=== PATIENT | male | born 1990 | race Caucasian/White ===

== ENCOUNTER 2020-07-10 16:35 | Emergency (ER) | payer SELFPAY ==
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
[2020-07-10 16:35] VITALS: BP 143/86; PULSE 92; RESP 14; TEMP 37.2; O2SAT 96
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
--- NOTE | 2020-07-10 18:01 | PC.NURSE ---
Anabela at [facility] contacted at 1800 per ERP verbal orders. Awaiting call back from ENT production operator.
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
--- NOTE | 2020-07-10 18:17 | PC.NURSE ---
1816 [employer] AT [facility] CONTACTED FOR HAND SURGEON, DR. CHENG, CONSULTATION. AWAITING CALL BACK.
[2020-07-10] MEDS: WATER, STERILE FOR INJECTION 10 ML VIAL XX (18:24)
[2020-07-10] MEDS: TETANUS,DIPHTHERIA,AC PERTUSSIS ADULT 0.5 ML (ADACEL) IM (18:24)
[2020-07-10] MEDS: ceFAZolin SODIUM 1 GM VIAL IM (18:25)
[2020-07-10] MEDS: NEOMYCIN/POLYMYXIN/BACITRACIN OINTMENT PACKET 2 PACKET (18:28)
--- NOTE | 2020-07-10 18:43 | PC.NURSE ---
516 DR. PETE, [facility], CONTACTED [facility] FOR CONSULT. SEE ERP DOCUMENTATION.
[2020-07-10 18:54] VITALS: PULSE 90; RESP 14; O2SAT 99
--- NOTE | 2020-07-13 22:44 | PC.NURSE ---
07/10/20 1850 ALICE WRAP APPLIED TO RIGHT HAND PER ERP VERBAL ORDERS
== END 2020-07-10 18:55 | disposition home or self-care (01) ==
PROVIDERS: Emergency Provider Family Medicine; PCP Family Medicine
DX: S62.65 Nondisplaced fracture of middle phalanx of finger (principal); S63.641A Sprain of metacarpophalangeal joint of right thumb, initial encounter; S02.2XXA Fracture of nasal bones, initial encounter for closed fracture; Y04.0XXA Assault by unarmed brawl or fight, initial encounter
CPT/HCPCS: 29125; 70486; 73110; 73130; 90471; 90715; 96372; 99283; 99284; A9270; J0690

== ENCOUNTER 2022-04-08 12:56 | Emergency (ER) | payer OTHER, SELFPAY ==
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
--- NOTE | 2022-04-08 12:59 | PC.NURSE ---
per registration, patient was going to grab his drink and phone and would be right back in.
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
[2022-04-08 13:25] VITALS: BP 133/88; PULSE 79; RESP 16; TEMP 36.1; O2SAT 98
[2022-04-08] MEDS: KETOROLAC (*BKC) 60 MG/2 ML VIAL IM (13:58)
[2022-04-08 14:25] VITALS: BP 116/82; PULSE 72; RESP 16; TEMP 36.4; O2SAT 100
== END 2022-04-08 14:26 | disposition home or self-care (01) ==
PROVIDERS: Emergency Provider Emergency Medicine; PCP Family Medicine
DX: S29.012A Strain of muscle and tendon of back wall of thorax, initial encounter (principal); S39.012A Strain of muscle, fascia and tendon of lower back, initial encounter; V89.2XXA Person injured in unspecified motor-vehicle accident, traffic, initial encounter
CPT/HCPCS: 72128; 72131; 96372; 99284; J1885

== ENCOUNTER 2023-02-28 23:05 | Emergency (ER) | payer SELFPAY ==
--- NOTE | ~2023-02-28 | XR_ITS ---
Right Hand Technique: PA, oblique, and lateral views were obtained. Clinical History: Pain Findings: No acute fracture or dislocation is seen. Osseous alignment is anatomic. There is mild to m oderate degenerative change at the fifth PIP joint. Soft tissues are unremarkable. Impression: No acute fracture or dislocation. Moderate degenerative change at the fifth PIP joint. Reviewed, dictated and finalized at location . Impression: No acute fracture or dislocation. Moderate degenerative change at the fifth PIP joint.
[2023-02-28 23:12] VITALS: BP 129/80; PULSE 90; RESP 18; TEMP 36.6; O2SAT 96
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
[2023-03-01] MEDS: KETOROLAC 30 MG/ML VIAL (*BKC) IM (00:19)
[2023-03-01 01:00] VITALS: BP 130/85; PULSE 79; RESP 17; TEMP 36.5; O2SAT 95
== END 2023-03-01 01:04 | disposition home or self-care (01) ==
PROVIDERS: Emergency Provider Internal Medicine Critical Care Medicine; PCP Family Medicine
DX: S61.210A Laceration without foreign body of right index finger without damage to nail, initial encounter (principal); M25.511 Pain in right shoulder; M79.641 Pain in right hand; S09.90XA Unspecified injury of head, initial encounter; F17.210 Nicotine dependence, cigarettes, uncomplicated; Y04.2XXA Assault by strike against or bumped into by another person, initial encounter
CPT/HCPCS: 12001; 73130; 96372; 99283; J1885

== ENCOUNTER 2024-04-11 03:32 | Emergency (ER) | payer SELFPAY ==
[2024-04-11 03:34] VITALS: BP 124/82; PULSE 77; RESP 18; TEMP 36.1; O2SAT 96
[2024-04-11] MEDS: AMOXICILLIN 500 MG CAPSULE PO (04:04)
[2024-04-11] MEDS: KETOROLAC (*BKC) 60 MG/2 ML VIAL IM (04:04)
--- NOTE | 2024-04-11 04:08 | ED.DENTAL ---
HPI - Dental/Oral General Chief complaint: Dental/Oral Stated complaint: dental pain Time Seen by Provider: 04/11/24 03:49 Source: patient Mode of arrival: ambulatory Limitations: no limitations History of Present Illness HPI Narrative: this is a 33-year-old male that is having dental pain with right facial pain no fever chills no shortness of breath Complaint: tooth pain Teeth map: 1. dental pain was surrounding gum inflammation 2. dental pain with surrounding gum inflammation Onset (ago): day(s) Relieving factors: nothing Exacerbating factors: chewing Context: history of dental caries and poor dental care Associated symptoms: gum swelling Related Data Home Medications Medication Instructions Recorded Confirmed anastrozole 25 mg PO DAILY 02/28/23 04/11/24 testosterone cypionate 200 mg/mL 200 mg IM ONCE 02/28/23 04/11/24 intramuscular kit Allergies Allergy/AdvReac Type Severity Reaction Status Date / Time No Known Allergies Allergy Verified 04/11/24 03:37 Review of Systems Review of Systems: All systems reviewed & are unremarkable except as noted in HPI and below PMFSH Past Medical History Medical History Broken nose Otitis media Wound, open, ear, Eustachian tube Surgical History Surgical History History of appendectomy Social History Social History Smoking packs per day: 2 Smoking cigarettes per day: 40.0 Smoking status: Current every day smoker Tobacco type: cigarettes Substance use: never Exam Const: General: healthy appearing Nutritional Appearance: well nourished Orientation/consciousness: patient oriented x3 Limitations: no limitations HENMT: Other: dental pain with surrounding gum inflammation with right submandibular gland swelling Neck: Neck: normal visual inspection Chest: Chest palpation & inspection: normal inspection of the chest Resp: Effort & Inspection: normal respiratory effort Auscultation: clear to auscultation bilaterally Course Course Emergency Course: patient received a dose of amoxicillin and a dose of 60mg IM Toradol with. Vital Signs Vital signs: Vital Signs Temperature 36.1 C L 04/11/24 03:34 Pulse Rate 77 04/11/24 03:34 Respiratory Rate 18 04/11/24 03:34 Blood Pressure 124/82 04/11/24 03:34 Pulse Oximetry 96 04/11/24 03:34 Oxygen Delivery Room Air 04/11/24 03:34 Temperature 36.1 C L 04/11/24 03:34 Pulse Rate 77 04/11/24 03:34 Respiratory Rate 18 04/11/24 03:34 Blood Pressure 124/82 04/11/24 03:34 Pulse Oximetry 96 04/11/24 03:34 Oxygen Delivery Room Air 04/11/24 03:34 Critical Care Time Critical Care Time Critical Care Time: No Discharge Plan Discharge Clinical Impression: Dental abscess, Toothache, Dental caries Patient Disposition: Home, Self-Care Condition: Stable Instructions: Antibiotic Form, Dental Abscess (ED), Toothache (ED) Additional Instructions: Advised to take medicine as prescribed and follow-up with Primary/dentist for further evaluation treatment Prescriptions: New amoxicillin 500 mg tablet 500 mg PO TID Qty: 30 0RF tramadol 50 mg tablet 50 mg PO Q6H PRN (Reason: pain) Qty: 20 0RF No Action testosterone cypionate 200 mg/mL Kit 200 mg IM ONCE Rx Instructions: as a single dose anastrozole 25 mg PO DAILY Follow-up/Referrals: Germaine,MD Parker [Primary Care Provider] - Stand Alone Forms: Work/School Release IP Time of Disposition: 04:13
== END 2024-04-11 04:18 | disposition home or self-care (01) ==
PROVIDERS: Emergency Provider Emergency Medicine; PCP Family Medicine
DX: K04.7 Periapical abscess without sinus (principal); K02.9 Dental caries, unspecified; F17.210 Nicotine dependence, cigarettes, uncomplicated
CPT/HCPCS: 96372; 99283; A9270; J1885

== ENCOUNTER 2024-04-15 18:01 | Emergency (ER) | payer SELFPAY ==
[2024-04-15 18:05] VITALS: BP 142/86; PULSE 77; RESP 20; TEMP 36.7; O2SAT 98
--- NOTE | 2024-04-15 18:18 | ED.DENTAL ---
HPI - Dental/Oral General Chief complaint: Dental/Oral Stated complaint: tooth pain/facial swelling Time Seen by Provider: 04/15/24 18:11 Source: patient and family () Mode of arrival: ambulatory Limitations: no limitations History of Present Illness HPI Narrative: 33 year old male presents to the Emergency Department complaining of dental pain. Onset 5 days ago. Was seen here and has followed with 2 dentists. He was given dental block, but his has worn off and he is in pain. He is taking Amoxicillin and Clindamycin and Tylenol #3. MD Complaint: tooth pain Onset (ago): day(s) (5) Duration: constant Severity: severe Relieving factors: other (dental block) Exacerbating factors: nothing Context: history of dental caries Treatment prior to arrival: oral analgesic and other (antibiotics, dental block) Related Data Home Medications Medication Instructions Recorded Confirmed anastrozole 25 mg PO DAILY 02/28/23 04/11/24 testosterone cypionate 200 mg/mL 200 mg IM ONCE 02/28/23 04/11/24 intramuscular kit Allergies Allergy/AdvReac Type Severity Reaction Status Date / Time No Known Allergies Allergy Verified 04/11/24 03:37 Review of Systems Review of Systems: All systems reviewed & are unremarkable except as noted in HPI and below Constitutional: Constitutional: Reports as per HPI Eyes: Eyes: Reports as per HPI ENT: Reports system reviewed and no additional complaints, except as documented Cardiovascular: Cardiovascular: Reports as per HPI and Denies chest pain Respiratory: Respiratory: Reports as per HPI and Denies dyspnea Gastrointestinal: Gastrointestinal: Reports as per HPI and Denies abdominal pain Musculoskeletal: Musculoskeletal: Reports no additional musculoskeletal complaints Integumentary/Breasts: Skin/Breast: Reports system reviewed and no additional complaints, except as docu Neurologic: Reports system reviewed and no additional complaints, except as documented PMF Past Medical History Medical History Broken nose Otitis media Wound, open, ear, Eustachian tube Surgical History Surgical History History of appendectomy Social History Social History Smoking packs per day: 2 Smoking cigarettes per day: 40.0 Smoking status: Current every day smoker Tobacco type: cigarettes Substance use: never Exam Const: General: healthy appearing Nutritional Appearance: well nourished Orientation/consciousness: patient oriented x3 Limitations: no limitations Other: moderate distress HENMT: Head: normal to inspection Ears: external ears normal Face/Nose/Sinus: Normal external nose present Face and sinus: normal facial exam Mouth: Yes Normal oral and palatal mucosa present Throat: posterior oropharynx normal Other: scattered dental decay. Eyes: Conjunctivae: conjunctivae normal Pupils: Equal, round and reactive pupils present EOM: EOMs intact bilaterally Direct Ophthalmoscopy: no photophobia Neck: Neck: normal visual inspection Chest: Chest palpation & inspection: normal inspection of the chest Resp: Effort & Inspection: normal respiratory effort Cardio: Rate: regular rate Rhythm: regular rhythm Heart sounds: no murmurs GI: Inspection: non-distended GI Palp: Yes Soft to palpation, No Tenderness to palpation present (GI) and No Guarding due to palpation present (GI) Skin: General skin exam: normal color Rashes: no rashes Wounds: no wounds Neuro: General: patient oriented x3, moves all extremities, no meningeal signs, no focal motor deficits and CN's II-XI intact bilaterally Cranial nerves: Yes Nystagmus not present Speech: normal speech Gait exam (Neuro): Normal gait present Extrem: General: normal to inspection Psych: Mental Status: mental status grossly normal Course Course [facility]
[2024-04-15] MEDS: HYDROmorphone HCL INJ (*CRX) 2 MG/ML VIAL IM (18:28)
[2024-04-15] MEDS: cefTRIAXone 1 GM, LIDOCAINE HCL 1% LOCAL INJ 2.1 ML IM (18:29)
== END 2024-04-15 18:43 | disposition home or self-care (01) ==
LOC: CHSED 18:45
PROVIDERS: Emergency Provider Emergency Medicine; PCP Family Medicine
DX: K08.89 Other specified disorders of teeth and supporting structures (principal); K02.9 Dental caries, unspecified; F17.210 Nicotine dependence, cigarettes, uncomplicated; Z79.811 Long term (current) use of aromatase inhibitors
CPT/HCPCS: 96372; 99284; J0696; J1170

== ENCOUNTER 2024-08-18 16:26 | Outpatient (CLI) | payer MEDICAID, SELFPAY ==
--- NOTE | ~2024-08-18 | XR_ITS ---
XR foot LT min 3V Ordering provider: Parker Herron, History: . LEFT FOOT PAIN . Comparison: None. FINDINGS: BONES: No acute fracture or dislocation. JOINT SPACES: Normal. No tarsal coalition. SOFT TISSUES: Normal. IMPRESSION: No acute osseous abnormality left foot. Reviewed, dictated and finalized at location A.
== END 2024-08-18 16:27 | disposition home or self-care (01) ==
LOC: CHSIMG 16:31
PROVIDERS: PCP Family Medicine; Visit Provider Physician Assistant
DX: M79.672 Pain in left foot (principal)
CPT/HCPCS: 73630

== ENCOUNTER 2024-11-26 20:28 | Emergency (ER) | payer OTHER, SELFPAY ==
--- NOTE | ~2024-11-26 | CT_ITS ---
EXAMINATION: CT diagnostic chest wo con DATE: 11/26/2024 21:05 INDICATION: Left-sided chest wall ulcer. TECHNIQUE: Computed tomography (CT) of the chest was performed without intravenous contrast. The dose -length product was 171.30 mGy-cm. Automated exposure control and iterative reconstruction technique were employed. COMPARISON: None FINDINGS: There is a soft tissue defect in the left anterior chest wall extending through the subcuta neous fat into the pectoralis muscle. There is mottled soft tissue and gas within the tract. No thora cic lymphadenopathy. Heart size normal. Upper abdomen is unremarkable. No evidence for underlying ost eomyelitis. There is focal left upper lobe consolidation anteriorly, suspicious for pneumonia. IMPRESSION: 1. Soft tissue defect left anterior chest wall with extension of this mottled soft tissue containing gas extending through the fat into the pectoralis muscle. Differential diagnosis includes posttraumat ic change and infection. 2: Focal left upper lobe consolidation, suspicious for pneumonia. Reviewed, dictated and finalized at location A. [employer] IMPRESSION: 1. Soft tissue defect left anterior chest wall with extension of this mottled s oft tissue containing gas extending through the fat into the pectoralis muscle. Differential diagnosis includes posttraumatic change and infection. 2: Focal left upper lobe consolidation, suspicious for pneumonia.
[2024-11-26 20:29] VITALS: BP 135/78; PULSE 83; RESP 20; TEMP 36.3; O2SAT 95
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
[2024-11-26 20:32] VITALS: PULSE 81; RESP 18; O2SAT 96
[2024-11-26 20:45] VITALS: PULSE 82; RESP 18
[2024-11-26 20:46] VITALS: BP 123/81; PULSE 84; RESP 15
[2024-11-26 21:48] VITALS: O2SAT 97
== END 2024-11-26 22:05 | disposition home or self-care (01) ==
PROVIDERS: Emergency Provider Internal Medicine Critical Care Medicine; PCP Physician Assistant
DX: L98.492 Non-pressure chronic ulcer of skin of other sites with fat layer exposed (principal); F17.210 Nicotine dependence, cigarettes, uncomplicated; Z89.211 Acquired absence of right upper limb below elbow
CPT/HCPCS: 71250; 99284

== ENCOUNTER 2024-12-21 22:54 | Emergency (ER) | payer OTHER, SELFPAY ==
[2024-12-21 22:54] VITALS: BP 114/58; PULSE 77; RESP 18; TEMP 36.4; O2SAT 99
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
--- OUTSIDE RECORDS SUMMARY | 2024-12-21 22:56 | XMS_ITS | Encounter Summary ---
Author Organization [facility] Address [address] [place] [id number] Care Team Providers Care Machined Parts Quality Inspector Name Role Phone Socrates Ramírez Primary Care Provider [phone] Encounter Details Date Type Department Care Team (Late st Contact Info) Description 04/19/2019 Abstract [facility] CONVERSION [address] [place], [place] [id number] , Generic Conversion, Social History Tobacco Use Types Packs/Day Years Used Date Smoking Tobacco: Never Assessed Sex and Gender Information Value Date Recorded Sex Assigned at Male 11/26/2024 1:28 PM CREPE MAKER Legal Sex Male 5:52 PM CREPE MAKER Gender Identity Not on file Sexual Orientation Not on file documented as of this encounter Plan of Treatment Upcoming Encounters Date Type Department Care Team (Late st Contact Info) Description 12/22/2024 8:30 AM CREPE MAKER Appointment [facility] [address] [place] [address] Shea Stein, EMPLOYEE SERVICES MANAGER [address] [place] [address] 12/25/2024 9:15 AM CREPE MAKER Appointment [facility] [address] [place] [address] Shea Stein, EMPLOYEE SERVICES MANAGER [address] [place] [address] documented as of this encounter Visit Diagnoses Not on filedocumented in this encounter Care Teams Machined Parts Quality Inspector Relationship Specialty Start Date End Date Socrates Ramírez PA [address] [place] [phone] PCP - General PHYSICIAN CONFERENCE ASSISTANT 11/26/24 documented as of this encounter
--- OUTSIDE RECORDS SUMMARY | 2024-12-21 22:56 | XMS_ITS | Clinical Summary ---
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
--- NOTE | 2024-12-21 22:59 | ECG_ITS ---
Test Date: 2024-12-21 23:11:34 Measurements Intervals Smilax Rate: 71 P: 55 NE: 144 QRS: -22 QRSD: 125 T: 25 QT: 373 QTc: 407 Interpretive Statements SINUS RHYTHM POSSIBLE RIGHT VENTRICULAR CONDUCTION DELAY DELAYED PRECORDIAL R/S TRANSITION NONSPECIFIC T-WAVE ABNORMALITY- INFERIOR LEADS BORDERLINE ECG No previous ECG available for comparison Electronically Signed On 12-22-2024 06:30:11 DOLLY PUSHER by Luis Manuel Mcintyre D.O.
--- NOTE | 2024-12-21 23:00 | ED_ITS ---
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 He started having some dysequilibrium earlier today along with fatigue and weakness. As he recently had a DVT he was concerned and came in. There is no diarrhea, vomiting, dyspnea, fevers or chest pain. He does have 2 daughters that are sick. Related Data Home Medications ?Medication ?Instructions ?Recorded ?Confirmed ?Last Taken ?Type apixaban 5 mg tablet (Eliquis) 5 mg PO Q12H 12/21/24 12/21/24 Unknown History cyclobenzaprine 10 mg tablet 10 mg PO Q8H PRN MUSCLE RELAXOR 12/21/24 12/21/24 Unknown History duloxetine 60 mg capsule,delayed 60 mg PO DAILY 12/21/24 12/21/24 Unknown History release famotidine 20 mg tablet 20 mg PO DAILY GERD 12/21/24 12/21/24 Unknown History morphine 30 mg tablet,extended 30 mg PO Q8H PAIN 12/21/24 12/21/24 Unknown History release oxycodone 10 mg tablet 10 mg PO Q6H PRN pain 12/21/24 12/21/24 Unknown History pregabalin 200 mg capsule 200 mg PO Q8H PAIN 12/21/24 12/21/24 Unknown History Allergies Allergy/AdvReac Type Severity Reaction Status Date / Time No Known Allergies Allergy Verified 12/21/24 23:06 Review of Systems 2 Review of Systems: All systems reviewed & are unremarkable except as noted in HPI and below PMFSH Past Medical History Medical History Broken nose Otitis media Wound, open, ear, Eustachian tube Surgical History Surgical History History of appendectomy Social History Social History Smoking packs per day: 2 Smoking cigarettes per day: 40.0 Smoking status: Current every day smoker Tobacco type: cigarettes Substance use: never Exam 2 Const: General: cooperative, healthy appearing, comfortable, no acute distress, well developed, alert, awake and Physically active O rientation/consciousness: oriented to person, oriented to place and oriented to time HENMT: Head: normal to inspection, normocephalic and atraumatic Ears: h earing grossly normal bilaterally and external ears normal Face/Nose/Sinus: N ormal external nose present Eyes: General: appearance normal, both eyes and all related structures P eriorbital: periorbital findings normal Sclera: sclerae normal Pupils: E qual, round and reactive pupils present Neck: Neck: normal visual inspection Chest: Chest palpation & inspection: normal inspection of the chest Resp: Effort & Inspection: normal respiratory effort, able to speak in complete sentences and no respiratory distress Auscultation: clear to auscultation bilaterally Cardio: Jugular venous distension: no JVD Rate: regular rate Rhythm: r egular rhythm GI: Inspection: normal to inspection GI Palp: Yes Soft to palpation A uscultation: normal bowel sounds Skin: General skin exam: normal color and no rashes or lesions noted Other: wound vac on chest Surgical scar on right leg Neuro: General: oriented to person, oriented to place and oriented to time Cranial nerves: Yes Equal, round and reactive pupils present Other: multiple beats of left sided nystagmus to the left. Normal finger to nose Extrem: Other: right hand amputation Course Course Emergency Course: EKG showed NSR with a rate of 71, possible LAD but no ST elevation/depression or ectopy Labs showed leukocytosis (likely from the DVT or healing wounds as there is no apparent site of infection), mild hyperkalemia, and negative viral testing Vital Signs Vital signs: Vital Signs Temperature 97.6 F 12/21/24 22:54 Pulse Rate 77 12/21/24 22:54 Respiratory Rate 18 12/21/24 22:54 Blood Pressure 114/58 L 12/21/24 22:54 Pulse Oximetry 99 12/21/24 22:54 Oxygen Delivery Room Air 12/21/24 22:54 Temperature 97.6 F 12/21/24 22:54 Pulse Rate 79 12/22/24 00:13 Respiratory Rate 18 12/22/24 00:13 Blood Pressure 122/72 12/22/24 00:13 Pulse Oximetry 96 12/22/24 00:13 Oxygen Delivery Room Air 12/22/24 00:13 Medical Decision Making Vital Signs Vital Signs: Vital Signs Temperature 97.6 F 12/21/24 22:54 Pulse Rate 77 12/21/24 22:54 Respiratory Rate 18 12/21/24 22:54 Blood Pressure 114/58 L 12/21/24 22:54 Pulse Oximetry 99 12/21/24 22:54 Oxygen Delivery Room Air 12/21/24 22:54 Temperature 97.6 F 12/21/24 22:54 Pulse Rate 79 12/22/24 00:13 Respiratory Rate 18 12/22/24 00:13 Blood Pressure 122/72 12/22/24 00:13 Pulse Oximetry 96 12/22/24 00:13 Oxygen Delivery Room Air 12/22/24 00:13 Lab Data 12/21/24 22:59 12/21/24 22:59 Labs: Lab Results 12/21/24 12/21/24 Range/Units 22:59 23:00 WBC 16.1 H (4.8-10.8) K/mm3 RBC 5.26 (4.70-6.10) M/mm3 Hgb 14.6 (14.0-18.0) g/dL Hct 44.4 (40.0-54.0) % MCV 84.4 (78.0-102.0) fL MCH 27.8 (27.0-31.0) pg MCHC 32.9 (32-36) g/dL RDW 13.0 (11.6-14.4) % Plt Count 294 (150-420) K/mm3 MPV 10.8 (8.7-11.0) fl Immature Gran % (Auto) 0.4 H (0.0-0.0) % Neut % (Auto) 60.6 (50.0-70.0) % Lymph % (Auto) 28.5 (18.0-42.0) % [place] % (Auto) 5.7 (2.0-11.0) % Eos % (Auto) 4.2 (1.0-6.0) % Baso % (Auto) 0.6 (0.0-1.0) % Lymph # (Auto) 4.60 H (1.10-4.50) K/mm3 [place] # (Auto) 0.92 H (0.10-0.90) K/mm3 Eos # (Auto) 0.68 H (0.02-0.50) K/mm3 Baso # (Auto) 0.09 (0.00-0.10) K/mm3 Abs Immat Gran (auto) 0.06 H (0.00-0.00) K/mm3 Absolute Neuts (auto) 9.79 H (1.70-7.20) K/mm3 Absolute Nucleated RBC 0.00 (0.00-0.00) K/mm3 Nucleated RBC % 0.0 (0-0.0) % Sodium 135 L (136-145) mmol/L Potassium 5.5 H (3.5-5.1) mmol/L Chloride 100 (98-108) mmol/L Carbon Dioxide 29 (21-32) mmol/L Anion Gap 6 (4-12) mmol/L BUN 5 L (7-18) mg/dL Creatinine 0.89 (0.70-1.30) mg/dL Estim Creat Clear Calc 104 ml/min Estimated GFR > 60 (59 - ) Glucose 120 H (70-99) mg/dL Calculated Osmolality 278 L (285-295) mOsm/kg Calcium 8.5 (8.5-10.1) mg/dL Magnesium 1.8 (1.8-2.4) mg/dL Total Bilirubin 0.6 (0.00-1.00) mg/dL AST 62 H (15-37) U/L ALT 26 (16-63) U/L Alkaline Phosphatase 91 (46-116) U/L Total Creatine Kinase 196 (39-308) U/L Troponin I < 4.0 (0.00-60.4) ng/L NT-Pro-B Natriuret Pep 36 (0-125) pg/mL Total Protein 7.0 (6.4-8.2) g/dL Albumin 3.6 (3.4-5.0) g/dL TSH 2.37 (0.36-3.74) uIU/mL Influenza A (RT-PCR) Negative (Negative) Influenza B (RT-PCR) Negative (Negative) RSV (RT-PCR) Negative (Negative) SARS-CoV-2 RNA (RT-PCR) Negative (Negative) Discharge Plan Discharge Clinical Impression: Vertigo Patient Disposition: Home, Self-Care Condition: Stable Instructions: Benign Paroxysmal Positional Vertigo (ED) Patient Language: Vietnamese Prescriptions: No Action cyclobenzaprine 10 mg tablet 10 mg PO Q8H PRN (Reason: MUSCLE RELAXOR) morphine 30 mg tablet extended release 30 mg PO Q8H famotidine 20 mg tablet 20 mg PO DAILY duloxetine 60 mg capsule,delayed release(DR/EC) 60 mg PO DAILY pregabalin 200 mg capsule 200 mg PO Q8H oxycodone 10 mg tablet 10 mg PO Q6H PRN (Reason: pain) Eliquis 5 mg tablet 5 mg PO Q12H Follow-up/Referrals: Desiree,YENNY Crowell [Primary Care Provider] -
[2024-12-21 23:01] VITALS: BP 115/71; PULSE 69; RESP 13; O2SAT 94
--- NOTE | 2024-12-21 23:05 | PC.NURSE ---
DR RIVER AT THE BEDSIDE
[2024-12-21 23:16] LABS: Basophils Absolute Auto 0.09 K/mm3 (0.00-0.10); Basophils Percent Auto 0.6 % (0.0-1.0); Eosinophils Absolute Auto 0.68 K/mm3 (0.02-0.50); Eosinophils Percent Auto 4.2 % (1.0-6.0); Hematocrit 44.4 % (40.0-54.0); Hemoglobin 14.6 g/dL (14.0-18.0); Immature Granulocyte Absolute 0.06 K/mm3 (0.00-0.00); Immature Granulocyte Percent A 0.4 % (0.0-0.0); Lymphocytes Percent Auto 28.5 % (18.0-42.0); Mean Corpuscular HGB Conc 32.9 g/dL (32-36); Mean Corpuscular Hemoglobin 27.8 pg (27.0-31.0); Mean Corpuscular Volume 84.4 fL (78.0-102.0); Mean Platelet Volume 10.8 fl (8.7-11.0); Monocytes Absolute Auto 0.92 K/mm3 (0.10-0.90); Monocytes Percent Auto 5.7 % (2.0-11.0); Neutrophils Absolute Auto 9.79 K/mm3 (1.70-7.20); Neutrophils Percent Auto 60.6 % (50.0-70.0); Platelet Count Result 294 K/mm3 (150-420); Red Blood Count 5.26 M/mm3 (4.70-6.10); White Blood Count 16.1 K/mm3 (4.8-10.8)
[2024-12-21 23:41] LABS: Alanine Aminotransferase 26 U/L (16-63); Albumin Level 3.6 g/dL (3.4-5.0); Alkaline Phosphatase 91 U/L (46-116); Anion Gap 6 mmol/L (4-12); Aspartate Amino Transferase 62 U/L (15-37); Bilirubin,Total 0.6 mg/dL (0.00-1.00); Blood Urea Nitrogen 5 mg/dL (7-18); Calcium 8.5 mg/dL (8.5-10.1); Carbon Dioxide 29 mmol/L (21-32); Chloride 100 mmol/L (98-108); Creatine Kinase 196 U/L (39-308); Estimated CRCL calculation 104 ml/min; Estimated Glomerular Filt Rate > 60; Glucose 120 mg/dL (70-99); Magnesium 1.8 mg/dL (1.8-2.4); NT Pro B Type Natriuretic Pept 36 pg/mL (0-125); Osmolality Calculated 278 mOsm/kg (285-295); Potassium 5.5 mmol/L (3.5-5.1); Sodium 135 mmol/L (136-145); Thyroid Stimulating Hormone 2.37 uIU/mL (0.36-3.74)
[2024-12-21 23:50] LABS: Troponin I < 4.0 ng/L (0.00-60.4)
[2024-12-21 23:55] LABS: SARS-CoV-2 RNA PCR Negative (Negative)
[2024-12-21 23:56] LABS: Influenza A QL RT-PCR Negative (Negative); Influenza B QL RT-PCR Negative (Negative); RSV RNA, RT-PCR Negative (Negative)
--- NOTE | 2024-12-22 00:12 | PC.NURSE ---
PATIENT AMBULATED TO THE BATHROOM AND BACK TO ROOM WITHOUT ANY DIFFICULTY.
[2024-12-22 00:13] VITALS: BP 122/72; PULSE 79; RESP 18; O2SAT 96
--- NOTE | 2024-12-22 00:13 | PC.NURSE ---
DR RIVER AT THE BEDSIDE
[2024-12-22] MEDS: MORPHINE SULFATE (*CRX) 4 MG/ML INJ IV PUSH (00:19)
--- OUTSIDE RECORDS SUMMARY | 2024-12-22 00:19 | XMS_ITS | Clinical Summary ---
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 CONTACT LAB WITHIN ONE WEEK. (A) NEGATIVE 11/17/2024 1:54 PM WATERMELON HARVESTING SUPERVISOR [facility] COCAINE METABOLITES (U) NEGATIVE NEGATIVE 11/17/2024 1:54 PM WATERMELON HARVESTING SUPERVISOR [facility] AMPHETAMINE (U) NEGATIVE NEGATIVE 1:54 PM WATERMELON HARVESTING SUPERVISOR [facility] CANNABINOIDS SCREEN (U) POSITIVE SCREEN RESULT, IF CONFIRMATION DESIRED PLEASE CONTACT LAB WITHIN ONE WEEK. (A) NEGATIVE 11/17/2024 1:54 PM WATERMELON HARVESTING SUPERVISOR [facility] OPIATE SCREEN (U) NEGATIVE NEGATIVE 025 1:54 PM WATERMELON HARVESTING SUPERVISOR [facility] BARBITURATES SCREEN (U) NEGATIVE NEGATIVE 11/17/2024 1:54 PM WATERMELON HARVESTING SUPERVISOR [facility] URINE TOX COMMENT Unconfirmed screening results are to be used only for medical purposes. 11/17/2024 1:18 PM WATERMELON HARVESTING SUPERVISOR [facility] CUTOFF CONCENTRATION (U) Cut-off Concentration for a positive result 11/17/2024 1:18 PM WATERMELON HARVESTING SUPERVISOR [facility] Comment: Phencyclidine 25 ng/mL Benzodiazepines 200 ng/mL Cocaine 300 ng/mL Amphetamine 1000 ng/mL Cannabinoids 50 ng/mL Opiates 300 ng/mL Barbiturates 200 ng/mL URINE SPECIMEN / Unknown 11/17/2024 1:20 PM WATERMELON HARVESTING SUPERVISOR us Aurora Hess DO URINE ORDERABLES Final Resu lt [facility] [address] [place] [address], [id number] * XR CHEST PORTABLE (11/17/2024 5:46 AM WATERMELON HARVESTING SUPERVISOR) Only the most recent of3 resultswithin the time period is included. Anatomical Region Laterality Modality Chest Radiographic Tresa ging 11/17/2024 5:47 AM WATERMELON HARVESTING SUPERVISOR Impressions 11/17/2024 5:50 AM WATERMELON HARVESTING SUPERVISOR IMPRESSION: 1. INTERVAL DECREASE IN PULMONARY VASCULAR CONGESTION. Signed: Yrn Mcfadden MD Referred By: VIOLETA VALDEZ Interpreted By: Yrn Mcfadden MD, 11/17/2024 5:47 AM Narrative 11/17/2024 5:50 AM WATERMELON HARVESTING SUPERVISOR [facility] [address] [place], [place] [address] PATIENT NAME: TERESA AKHTAR EXAM: Chest one [...] Procedure Note Yrn Mcfadden MD - 11/17/[address] [address] PATIENT NAME: TERESA AKHTAR EXAM: Chest one [...] * (ABNORMAL) PROTIME/INR, VENOUS (11/16/2024 9:32 PM WATERMELON HARVESTING SUPERVISOR) Only the most recent of2 resultswithin the time period is included. PROTIME 13.0(H) 9.4 - 12.5 SEC 11/16/2024 10:00 PM WATERMELON HARVESTING SUPERVISOR [facility] INR 1.1 0.8 - 1.1 11/16/2024 10:00 PM WATERMELON HARVESTING SUPERVISOR [facility] 11/16/2024 9:32 PM WATERMELON HARVESTING SUPERVISOR us Giovanna Perez NP LABORATORY Final Result [facility] [address] [place] [address], [id number] * XR ABD UPRIGHT (11/16/2024 9:23 PM WATERMELON HARVESTING SUPERVISOR) Anatomical Region Laterality Modality Abdomen Radiographic Tresa ging 11/16/2024 9:27 PM WATERMELON HARVESTING SUPERVISOR Impressions 11/16/2024 9:30 PM WATERMELON HARVESTING SUPERVISOR IMPRESSION: Endogastric tube extends well into the stomach. Prominent craniocaudad dimension right lobe of the liver, suggestive of hepatic enlargement. Coarsened perivascular markings in the left hilar region of the chest suggesting perihilar infiltrate or congestion. Referred By: VIOLETA VALDEZ Interpreted By: Tavo Vera MD, 11/16/2024 9:27 PM Narrative 11/16/2024 9:30 PM WATERMELON HARVESTING SUPERVISOR [facility] [address] [place], [place] [address] 11/16/2024, 2111 hours. HISTORY: Newly placed orogastric tube. Tube evaluation. EXAM: X-ray abdomen upright. Single supine portable AP view of the lower chest and upper abdomen was performed. No comparison. FINDINGS: An endogastric tube is present coursing along the mid and distal thoracic esophagus, into the stomach and beyond the [id number]. The side-port of the tube is projected [...] Procedure Note Deepak Vera MD - 11/16/2024 [facility] [address] [place], [place] [address] 11/16/2024, 2111 hours. HISTORY: Newly placed orogastric tube. Tube evaluation. EXAM: X-ray abdomen upright. Single supine portable AP view of the lower chest and upper abdomen wasperformed. No comparison. FINDINGS: An endogastric tube is present coursing along the mid and distalthoracic esophagus, into the stomach and beyond the [id number]. Theside-port of the tube is projected over [...] WRIST RT MIN 3V (11/16/2024 5:56 PM WATERMELON HARVESTING SUPERVISOR) Anatomical Region Laterality Modality Wrist Radiographic Tresa ging 11/16/2024 6:41 PM WATERMELON HARVESTING SUPERVISOR Impressions 11/16/2024 7:01 PM WATERMELON HARVESTING SUPERVISOR IMPRESSION: 1. 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 2. Trace subcutaneous emphysema in the volar aspect of the distal forearm, possibly postprocedural, though traumatic etiology is not excluded in the context of blast injury. 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 2. Trace subcutaneous emphysema in the volar aspect of the distal forearm, possibly postprocedural, though traumatic etiology is not excluded in the context of blast injury. 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, status post traumatic amputation [...] CULTURE, TISSUE W/GRAM STAIN (11/16/2024 1:41 PM WATERMELON HARVESTING SUPERVISOR) SPEC DESCRIPTION ARM,RIGHT 11/16/2024 1:53 PM WATERMELON HARVESTING SUPERVISOR [facility] SPECIAL REQUESTS NO SPECIAL REQUEST 11/16/2024 1:53 PM WATERMELON HARVESTING SUPERVISOR [facility] GRAM STAIN RESULT NO NEUTROPHILS OR ORGANISMS SEEN 11/16/2024 3:25 PM WATERMELON HARVESTING SUPERVISOR [facility] CULTURE RESULT RARE PSEUDOMONAS ORYZIHABITANS 11/20/2024 8:40 AM WATERMELON HARVESTING SUPERVISOR [facility] TISSUE STRUCTURE OF RIGHT UPPER LIMB / Unknown 11/16/2024 1:41 PM WATERMELON HARVESTING SUPERVISOR Narrative Organism Antibiotic Method Susceptibility Pseudomonas oryzihabitans CEFTAZIDIME DAVID (ETEST) 0.5: Sensitive Pseudomonas oryzihabitans GENTAMICIN DAVID (ETEST) 0.094: Sensitive Pseudomonas oryzihabitans MEROPENEM DAVID (ETEST) 0.012: Sensitive Pseudomonas oryzihabitans CIPROFLOXACIN DAVID (ETEST) 0.032: Sensitive Pseudomonas oryzihabitans TRIMETH-SULFAMETH. DAVID (ETES T) 1.0: Resistant Pseudomonas oryzihabitans PIPRACIL/TAZO DAVID (ETEST) 3: Sensitive us Andrey Colon MD MICROBIOLOGY - GENERAL OR DERABLES Final Result Performing Organization Address [facility] Co de Phone Number [facility] [address] [place] [address], [id number] * (ABNORMAL) CULTURE, FUNGUS (11/16/2024 1:41 PM WATERMELON HARVESTING SUPERVISOR) SOURCE (CLARENDON) ARM,RIGHT 11/16/2024 1:53 PM WATERMELON HARVESTING SUPERVISOR [facility] CULTURE RESULT SEE NOTE 02:13 PM(A) 12/15/2024 2:13 PM WATERMELON HARVESTING SUPERVISOR [facility] Comment: Test Result Flag Unit RefValue Fungal Culture, Routine A SOURCE: ARM, RIGHT, ARM,RIGHT TISSUE FUNGAL CULTURE, ROUTINE FINAL TRICHODERMA sp Semi-Urgent Result. Test Performed by: [place] [address] Car Checker: Moody Stinson Ph.D.; CLIA# [id number] TISSUE STRUCTURE OF RIGHT UPPER LIMB / Unknown 11/16/2024 1:41 PM WATERMELON HARVESTING SUPERVISOR Andrey Colon MD MICROBIOLOGY - GENERAL OR DERABLES Final Result Performing Organization Address [facility] Co de Phone Number [facility] [address] [place] [address] [facility] [address] [place] [address], [id number] * CULTURE, ANAEROBIC (11/16/2024 1:41 PM WATERMELON HARVESTING SUPERVISOR) SPEC DESCRIPTION ARM,RIGHT 11/16/2024 1:53 PM WATERMELON HARVESTING SUPERVISOR [facility] SPECIAL REQUESTS NO SPECIAL REQUEST 11/16/2024 1:53 PM WATERMELON HARVESTING SUPERVISOR [facility] CULTURE RESULT NO ANAEROBES ISOLATED 11/20/2024 8:41 AM WATERMELON HARVESTING SUPERVISOR [facility] TISSUE STRUCTURE OF RIGHT UPPER LIMB / Unknown 11/16/2024 1:41 PM WATERMELON HARVESTING SUPERVISOR Andrey Colon MD MICROBIOLOGY - GENERAL OR DERABLES Final Result [facility] [address] [place] [address], [id number] * SURG XR FLUOROSCOPY (11/16/2024 11:58 AM WATERMELON HARVESTING SUPERVISOR) Anatomical Region Laterality Modality Undefined Radio Fluoroscop y 11/16/2024 11:5 8 AM WATERMELON HARVESTING SUPERVISOR Narrative 11/16/2024 11:58 AM WATERMELON HARVESTING SUPERVISOR This report does not contain a radiologist's interpretation. Please review associated procedure and/or operative report. Procedure Note , Generic Conversion, - 11/17/2024 This report does not contain a radiologist's interpretation. Please review associated procedure and/or operative report. Andrey Colon MD IMAGES ONLY Final Res ult * (ABNORMAL) ARTERIAL BLOOD GAS (11/16/2024 11:17 AM WATERMELON HARVESTING SUPERVISOR) PH ARTERIAL 7.33(L) 7.35 - 7.45 11/16/2024 11:20 AM [facility] PCO2 44.2 35.0 - 45.0 MMHG 11/16/2024 11:20 AM [facility] PO2 82.4(L) 83.0 - 108.0 MMHG 11/16/2024 11:20 AM [facility] BICARB ARTERIAL 22.7 22 - 26 MMOL/L 11/16/2024 11:20 AM [facility] TOTAL CO2 CAPILLARY 24.0 23 - 27 MMOL/L 11/16/2024 11:20 AM [facility] BASE DEFICIT 2.9 0.0 - 3.0 MMOL/L 11/16/2024 11:20 AM [facility] O2 Saturation 96 95 - 98 % 11/16/2024 11:20 AM [facility] ANA MARIA TEST POSITIVE 11/16/2024 11:17 AM [facility] OXYGEN STATUS room ar 11/16/2024 11:17 AM [facility] DRAW SITE ARTERIAL LT RADIAL 11/16/2024 11:17 AM [facility] 11/16/2024 11:1 7 AM WATERMELON HARVESTING SUPERVISOR us Giovanna Chauhan Chris PAYROLL MASTER LABORATORY Final Result [facility] [address] [place] [address], [id number] * Intubation (11/16/2024 11:11 AM WATERMELON HARVESTING SUPERVISOR) Narrative Bo Marie MD - 11/16/2024 11:11 AM WATERMELON HARVESTING SUPERVISOR Anmol Han MD 11/16/2024 11:51 AM Intubation Date/Time: 11/16/2024 11:11 AM Performed by: Anmol Han MD Authorized by: Bo Marie MD Consent: Consent obtained: Emergent situation Martin protocol: Required blood products, implants, devices, and [...] CTA UP EXT RT (11/16/2024 10:35 AM WATERMELON HARVESTING SUPERVISOR) Anatomical Region Laterality Modality Extremity Computed Tomogra phy 11/16/2024 11:0 7 AM WATERMELON HARVESTING SUPERVISOR Impressions 11/16/2024 11:27 AM WATERMELON HARVESTING SUPERVISOR IMPRESSION: 1. Apparent cut off of enhancement [...] 11/16/2024 11:07 AM Narrative 11/16/2024 11:27 AM WATERMELON HARVESTING SUPERVISOR [address] [address] EXAMINATION: CTA CHEST, ABDOMEN AND PELVIS CLINICAL [...] Procedure Note Douglas Weaver MD - 11/16/[address] [address] EXAMINATION: CTA CHEST, ABDOMEN AND PELVIS CLINICAL [...] chronic, incidental, nonemergentfindings elsewhere. Ordered By: BO MAIRE Interpreted By: Douglas Weaver MD, 11/16/2024 11:07 AM Bo Marie MD CT Final Result * CTA CHEST+ABD+PEL (11/16/2024 10:35 AM WATERMELON HARVESTING SUPERVISOR) Anatomical Region Laterality Modality Chest, Abdomen, Pelvis Computed Tomography 11/16/2024 11:0 7 AM WATERMELON HARVESTING SUPERVISOR Impressions 11/16/2024 11:27 AM WATERMELON HARVESTING SUPERVISOR IMPRESSION: 1. Apparent cut off of enhancement [...] 11/16/2024 11:07 AM Narrative 11/16/2024 11:27 AM WATERMELON HARVESTING SUPERVISOR [address] [address] EXAMINATION: CTA CHEST, ABDOMEN AND PELVIS CLINICAL [...] Procedure Note Douglas Weaver MD - 11/16/[address] [address] EXAMINATION: CTA CHEST, ABDOMEN AND PELVIS CLINICAL [...] PA OR AP 1V (11/16/2024 10:13 AM WATERMELON HARVESTING SUPERVISOR) Anatomical Region Laterality Modality Chest Radiographic Tresa ging 11/16/2024 10:1 9 AM WATERMELON HARVESTING SUPERVISOR Impressions 11/16/2024 10:21 AM WATERMELON HARVESTING SUPERVISOR IMPRESSION: 1. Endotracheal tube with the distal tip terminating above the erickson. 2. Shallow inspiration with bronchovascular crowding. Referred By: VIOLETA VALDEZ Interpreted By: Christina Hernández MD, 11/16/2024 10:19 AM Narrative 11/16/2024 10:21 AM WATERMELON HARVESTING SUPERVISOR [address] [address] EXAMINATION: Chest x-ray 1 view. 11/16/2024 10:20 [...] Procedure Note Christina Hernández MD - 11/16/[address] [address] EXAMINATION: Chest x-ray 1 view. 11/16/2024 10:20 [...] * TYPE & SCREEN (11/16/2024 10:04 AM WATERMELON HARVESTING SUPERVISOR) ABO/RH A POSITIVE 11/16/2024 10:52 AM WATERMELON HARVESTING SUPERVISOR [facility] ANTIBODY SCREEN NEGATIVE 11/16/2024 10:52 AM WATERMELON HARVESTING SUPERVISOR [facility] SAMPLE EXPIRATION 11/19/2024,2 359 11/16/2024 10:15 AM WATERMELON HARVESTING SUPERVISOR [facility] 11/16/2024 10:0 4 AM WATERMELON HARVESTING SUPERVISOR Violeta Valdez MD BLOOD BANK TEST ORDERABLES Fin al Result Performing Organization Address [facility] Co de Phone Number [facility] [address] [place] [address], [id number] * PARTIAL THROMBOPLASTIN TIME,PTT (11/16/2024 10:04 AM WATERMELON HARVESTING SUPERVISOR) PTT 27.5 25.1 - 36.5 SEC 11/16/2024 10:37 AM WATERMELON HARVESTING SUPERVISOR [facility] 11/16/2024 10:0 4 AM WATERMELON HARVESTING SUPERVISOR Jamalis Kennedy DO LABORATORY Final Result Performing Organization Address [facility] de Phone Number [facility] [address] [place] [id number], [id number] * TROPONIN, QUANT (11/16/2024 10:04 AM WATERMELON HARVESTING SUPERVISOR) TROPONIN I HIGH SENSITIVITY 5 0 - 78 ng/L 11/16/2024 11:49 AM WATERMELON HARVESTING SUPERVISOR [facility] 11/16/2024 10:0 4 AM WATERMELON HARVESTING SUPERVISOR Giovanna Perez PAYROLL MASTER LABORATORY Final Result Performing Organization Address [facility] Co de Phone Number [facility] [address] [place] [address], [place] [phone] * ETHANOL (11/16/2024 10:04 AM WATERMELON HARVESTING SUPERVISOR) ALCOHOL S/P/B ZERO 0 G/DL 11/16/2024 10:32 AM WATERMELON HARVESTING SUPERVISOR [facility] 11/16/2024 10:0 4 AM WATERMELON HARVESTING SUPERVISOR Ashis Kennedy DO LABORATORY Final Result Performing Organization Address [facility] Co de Phone Number [facility] [address] [place] [address], [place] [phone] [id number] from Last 3 [place] [address] WEATHERS Advance Directives * Full Code (Latest Code Status on File) Date Activated Date Inactivated Comments 11/16/2024 10:18 AM 11/24/2024 3:33 PM Care Teams Buffing Wheel Raker Relationship Specialty Start Date End Date Socrates Ramírez PA [address] [place] [phone] PCP - General PHYSICIAN OIL PAINTER 11/26/24
--- OUTSIDE RECORDS SUMMARY | 2024-12-22 00:19 | XMS_ITS | Clinical Summary ---
Author Organization [facility] Address [address] [place] [address] Phone Care Team Providers Care Patternmaker Metal Bench Name Role Phone Unavailable Primary Care Provider Unavailabl e Allergies No known active allergies Social History Tobacco Use Types Packs/Day Years Used Date Smoking Tobacco: Never Assessed Sex and Gender Information Value Date Recorded Sex Assigned at Not on file Legal Sex Male 3:49 AM SMOKEHOUSE OPERATOR Gender Identity Not on file Sexual Orientation Not on file Plan of Treatment Not on file
--- OUTSIDE RECORDS SUMMARY | 2024-12-22 00:19 | XMS_ITS | Encounter Summary ---
Author Organization [facility] Address [address] [place] [address] Care Team Providers Care Validation Specialist Name Role Phone Socrates Ramírez Primary Care Provider [phone] Encounter Details Date Type Department Care Team (Late st Contact Info) Description 04/19/2019 Abstract [facility] [address] [place], [place] [id number] , Generic Conversion, Social History Tobacco Use Types Packs/Day Years Used Date Smoking Tobacco: Never Assessed Sex and Gender Information Value Date Recorded Sex Assigned at Male 11/26/2024 1:28 PM LABORER CONSTRUCTION OR LEAK GANG Legal Sex Male 5:52 PM LABORER CONSTRUCTION OR LEAK GANG Gender Identity Not on file Sexual Orientation Not on file documented as of this encounter Plan of Treatment Upcoming Encounters Date Type Department Care Team (Late st Contact Info) Description 12/22/2024 8:30 AM LABORER CONSTRUCTION OR LEAK GANG Appointment [facility] [address] [place] [address] Shea Stein, EDITOR DICTIONARY [address] [place] [address] 12/25/2024 9:15 AM LABORER CONSTRUCTION OR LEAK GANG Appointment [facility] [address] [place] [address] Shea Stein, EDITOR DICTIONARY [address] [place] [address] documented as of this encounter Visit Diagnoses Not on filedocumented in this encounter Care Teams Validation Specialist Relationship Specialty Start Date End Date Socrates Ramírez PA [address] [place] [phone] PCP - General PHYSICIAN CLINICAL RESOURCE DIRECTOR 11/26/24 documented as of this encounter
== END 2024-12-22 00:39 | disposition home or self-care (01) ==
PROVIDERS: Emergency Provider Family Medicine; PCP Physician Assistant
DX: R42 Dizziness and giddiness (principal); F17.210 Nicotine dependence, cigarettes, uncomplicated; Z20.822 Contact with and (suspected) exposure to COVID-19; Z86.718 Personal history of other venous thrombosis and embolism; Z79.01 Long term (current) use of anticoagulants
CPT/HCPCS: 36415; 80053; 82550; 83735; 83880; 84443; 84484; 85025; 87637; 93005; 96374; 99284; J2270

== ENCOUNTER 2025-01-07 20:27 | Emergency (ER) | payer OTHER, SELFPAY ==
[2025-01-07 20:28] VITALS: BP 130/92; PULSE 82; RESP 18; TEMP 36.9; O2SAT 98
--- OUTSIDE RECORDS SUMMARY | 2025-01-07 20:30 | XMS_ITS | Encounter Summary ---
Author Organization [facility] Address [address] [place] [address] Care Team Providers Care Phd Intern Name Role Phone Socrates Ramírez Primary Care Provider [phone] Encounter Details Date Type Department Care Team (Late st Contact Info) Description 04/19/2019 Abstract [facility] CONVERSION [address] [place], [place] [id number] , Generic Conversion, Social History Tobacco Use Types Packs/Day Years Used Date Smoking Tobacco: Never Assessed Sex and Gender Information Value Date Recorded Sex Assigned at Male 11/26/2024 1:28 PM MOBILE WEB APPLICATION DEVELOPER Legal Sex Male 5:52 PM MOBILE WEB APPLICATION DEVELOPER Gender Identity Not on file Sexual Orientation Straight 12/31/2024 9: 23 AM MOBILE WEB APPLICATION DEVELOPER documented as of this encounter Plan of Treatment Upcoming Encounters Date Type Department Care Team (Late st Contact Info) Description 01/09/2025 9:00 AM MOBILE WEB APPLICATION DEVELOPER Appointment [facility] [address] [place] [address] Shea Stein, BANQUET BARTENDER [address] [place] [address] documented as of this encounter Visit Diagnoses Not on filedocumented in this encounter Care Teams Phd Intern Relationship Specialty Start Date End Date Socrates Ramírez PA [address] [place] [phone] PCP - General PHYSICIAN NAPHTHA WASHING SYSTEM OPERATOR 11/26/24 documented as of this encounter
--- OUTSIDE RECORDS SUMMARY | 2025-01-07 20:30 | XMS_ITS | Clinical Summary ---
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 TELECOMMUNICATIONS NETWORK ENGINEER) Anatomical Region Laterality Modality Hand Radiographic Tresa ging 11/17/2024 3:30 PM TELECOMMUNICATIONS NETWORK ENGINEER Impressions 11/17/2024 3:30 PM TELECOMMUNICATIONS NETWORK ENGINEER IMPRESSION: No acute findings Ordered By: AURORA HESS Interpreted By: Jarad Earl MD, 11/17/2024 3:30 PM Narrative 11/17/2024 3:30 PM TELECOMMUNICATIONS NETWORK ENGINEER [facility] [address] [place], [place] [address] 3 VIEWS OF THE LEFT HAND Clinical History: Pain Comparison: None 3 views of the left hand demonstrate the bony elements to be intact. There is no evidence of fracture or dislocation. . The surrounding soft tissues are within normal limits Procedure Note Jarad Earl MD - 11/17/2024 [facility] [address] [place], [place] [address] 3 VIEWS OF THE LEFT HAND Clinical [...] LACTIC ACID - SINGLE (11/17/2024 2:03 PM TELECOMMUNICATIONS NETWORK ENGINEER) LACTIC ACID VENOUS 0.5 0.4 - 2.0 MMOL/L 11/17/2024 3:11 PM TELECOMMUNICATIONS NETWORK ENGINEER [facility] 11/17/2024 2:03 PM TELECOMMUNICATIONS NETWORK ENGINEER Aurora Hess DO LABORATORY Final Resul t [facility] [address] [place] [address], [id number] * (ABNORMAL) POCT ACUTE ARTERIAL PANEL (11/17/2024 1:56 PM TELECOMMUNICATIONS NETWORK ENGINEER) Only the most recent of2 resultswithin the time period is included. SODIUM WHOLE BLOOD 140 138 - 146 mmol/L 11/17/2024 1:59 PM TELECOMMUNICATIONS NETWORK ENGINEER [facility] POTASSIUM WHOLE BLOOD 3.8 3.5 - 4.9 mmol/L 11/17/2024 1:59 PM TELECOMMUNICATIONS NETWORK ENGINEER [facility] CA IONIZED WH BLOOD 1.11(L) 1.12 - 1.32 mmol/L 11/17/2024 1:59 PM TELECOMMUNICATIONS NETWORK ENGINEER [facility] POC PH ARTERIAL 7.370 7.35 - 7.45 11/17/2024 1:59 PM TELECOMMUNICATIONS NETWORK ENGINEER [facility] POC PCO2 ARTERIAL 45.7(H) 35.0 - 45.0 MMHG 11/17/2024 1:59 PM TELECOMMUNICATIONS NETWORK ENGINEER [facility] POC PO2 ARTERIAL 99 80 - 105 MMHG 11/17/2024 1:59 PM TELECOMMUNICATIONS NETWORK ENGINEER [facility] POC HCO3 ARTERIAL 26.4(H) 22 - 26 MMOL/L 11/17/2024 1:59 PM TELECOMMUNICATIONS NETWORK ENGINEER [facility] POC TCO2 ARTERIAL 28(H) 23 - 27 MMOL/L 11/17/2024 1:59 PM TELECOMMUNICATIONS NETWORK ENGINEER [facility] POC BASE EXCESS ARTERIAL 1 0 - 3 MMOL/L 11/17/2024 1:59 PM TELECOMMUNICATIONS NETWORK ENGINEER [facility] POC HEMATOCRIT 38 38 - 51 % 11/17/2024 1:59 PM TELECOMMUNICATIONS NETWORK ENGINEER [facility] TIME TEST WAS PERFORMED: 1356 11/17/2024 1:59 PM TELECOMMUNICATIONS NETWORK ENGINEER [facility] 11/17/2024 1:56 PM TELECOMMUNICATIONS NETWORK ENGINEER us Aurora Hess DO POCT ORDERABLES - DEVICE Fi nal Result [facility] [address] [place] [address], [id number] * (ABNORMAL) URINE DRUG SCREEN (TOXICOLOGY) (11/17/2024 1:20 PM TELECOMMUNICATIONS NETWORK ENGINEER) PHENCYCLIDINE PCP (U) NEGATIVE NEGATIVE 11/17/2024 1:54 PM TELECOMMUNICATIONS NETWORK ENGINEER [facility] BENZODIAZEPINES SCREEN (U) POSITIVE SCREEN RESULT, IF CONFIRMATION DESIRED PLEASE CONTACT LAB WITHIN ONE WEEK. (A) NEGATIVE 11/17/2024 1:54 PM TELECOMMUNICATIONS NETWORK ENGINEER [facility] COCAINE METABOLITES (U) NEGATIVE NEGATIVE 11/17/2024 1:54 PM TELECOMMUNICATIONS NETWORK ENGINEER [facility] AMPHETAMINE (U) NEGATIVE NEGATIVE 1:54 PM TELECOMMUNICATIONS NETWORK ENGINEER [facility] CANNABINOIDS SCREEN (U) POSITIVE SCREEN RESULT, IF CONFIRMATION DESIRED PLEASE CONTACT LAB WITHIN ONE WEEK. (A) NEGATIVE 11/17/2024 1:54 PM TELECOMMUNICATIONS NETWORK ENGINEER [facility] OPIATE SCREEN (U) NEGATIVE NEGATIVE 025 1:54 PM TELECOMMUNICATIONS NETWORK ENGINEER [facility] BARBITURATES SCREEN (U) NEGATIVE NEGATIVE 11/17/2024 1:54 PM TELECOMMUNICATIONS NETWORK ENGINEER [facility] URINE TOX COMMENT Unconfirmed screening results are to be used only for medical purposes. 11/17/2024 1:18 PM TELECOMMUNICATIONS NETWORK ENGINEER [facility] CUTOFF CONCENTRATION (U) Cut-off Concentration for a positive result 11/17/2024 1:18 PM TELECOMMUNICATIONS NETWORK ENGINEER [facility] Comment: Phencyclidine 25 ng/mL Benzodiazepines 200 ng/mL Cocaine 300 ng/mL Amphetamine 1000 ng/mL Cannabinoids 50 ng/mL Opiates 300 ng/mL Barbiturates 200 ng/mL URINE SPECIMEN / Unknown 11/17/2024 1:20 PM TELECOMMUNICATIONS NETWORK ENGINEER us Aurora Hess DO URINE ORDERABLES Final Resu lt [facility] [address] [place] [address], [id number] * XR CHEST PORTABLE (11/17/2024 5:46 AM TELECOMMUNICATIONS NETWORK ENGINEER) Only the most recent of3 resultswithin the time period is included. Anatomical Region Laterality Modality Chest Radiographic Tresa ging 11/17/2024 5:47 AM TELECOMMUNICATIONS NETWORK ENGINEER Impressions 11/17/2024 5:50 AM TELECOMMUNICATIONS NETWORK ENGINEER IMPRESSION: 1. INTERVAL DECREASE IN PULMONARY VASCULAR CONGESTION. Signed: Yrn Mcfadden MD Referred By: VIOLETA VALDEZ Interpreted By: Yrn Mcfadden MD, 11/17/2024 5:47 AM Narrative 11/17/2024 5:50 AM TELECOMMUNICATIONS NETWORK ENGINEER [address] [address] PATIENT NAME: TERESA AKHTAR EXAM: Chest one [...] Procedure Note Yrn Mcfadden MD - 11/17/[address] [address] PATIENT NAME: TERESA AKHTAR EXAM: Chest one [...] By: Yrn Mcfadden MD, 11/17/2024 5:47 AM us Giovanna Perez HOT STRIP MILL SUPERVISOR GENERAL IMAGING Final Result * (ABNORMAL) PROTIME/INR, VENOUS (11/16/2024 9:32 PM TELECOMMUNICATIONS NETWORK ENGINEER) Only the most recent of2 resultswithin the time period is included. PROTIME 13.0(H) 9.4 - 12.5 SEC 11/16/2024 10:00 PM TELECOMMUNICATIONS NETWORK ENGINEER [facility] INR 1.1 0.8 - 1.1 11/16/2024 10:00 PM TELECOMMUNICATIONS NETWORK ENGINEER [facility] 11/16/2024 9:32 PM TELECOMMUNICATIONS NETWORK ENGINEER Giovanna Perez HOT STRIP MILL SUPERVISOR LABORATORY Final Result [facility] [address] [place] [address], [id number] * XR ABD UPRIGHT (11/16/2024 9:23 PM TELECOMMUNICATIONS NETWORK ENGINEER) Anatomical Region Laterality Modality Abdomen Radiographic Tresa ging 11/16/2024 9:27 PM TELECOMMUNICATIONS NETWORK ENGINEER Impressions 11/16/2024 9:30 PM TELECOMMUNICATIONS NETWORK ENGINEER IMPRESSION: Endogastric tube extends well into the stomach. Prominent craniocaudad dimension right lobe of the liver, suggestive of hepatic enlargement. Coarsened perivascular markings in the left hilar region of the chest suggesting perihilar infiltrate or congestion. Referred By: VIOLETA VALDEZ Interpreted By: Tavo Vera MD, 11/16/2024 9:27 PM Narrative 11/16/2024 9:30 PM TELECOMMUNICATIONS NETWORK ENGINEER [facility] [address] [place], [place] [address] 11/16/2024, 2111 hours. HISTORY: Newly placed orogastric tube. Tube evaluation. EXAM: X-ray abdomen upright. Single supine portable AP view of the lower chest and upper abdomen was performed. No comparison. FINDINGS: An endogastric tube is present coursing along the mid and distal thoracic esophagus, into the stomach and beyond the [id number]. The side-port of the tube is projected [...] Procedure Note Deepak Vera MD - 11/16/2024 [facility] [address] [place], [place] [address] 11/16/2024, 2111 hours. HISTORY: Newly placed orogastric tube. Tube evaluation. EXAM: X-ray abdomen upright. Single supine portable AP view of the lower chest and upper abdomen wasperformed. No comparison. FINDINGS: An endogastric tube is present coursing along the mid and distalthoracic esophagus, into the stomach and beyond the [id number]. Theside-port of the tube is projected over [...] WRIST RT MIN 3V (11/16/2024 5:56 PM TELECOMMUNICATIONS NETWORK ENGINEER) Anatomical Region Laterality Modality Wrist Radiographic Tresa ging 11/16/2024 6:41 PM TELECOMMUNICATIONS NETWORK ENGINEER Impressions 11/16/2024 7:01 PM TELECOMMUNICATIONS NETWORK ENGINEER IMPRESSION: 1. 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 2. Trace subcutaneous emphysema in the volar aspect of the distal forearm, possibly postprocedural, though traumatic etiology is not excluded in the context of blast injury. 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 2. Trace subcutaneous emphysema in the volar aspect of the distal forearm, possibly postprocedural, though traumatic etiology is not excluded in the context of blast injury. 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, status post traumatic amputation [...] By: Saurav Gaines MD, 11/16/2024 6:41 PM us Giovanna Perez NP GENERAL IMAGING Final Result * CULTURE, TISSUE W/GRAM STAIN (11/16/2024 1:41 PM TELECOMMUNICATIONS NETWORK ENGINEER) SPEC DESCRIPTION ARM,RIGHT 11/16/2024 1:53 PM TELECOMMUNICATIONS NETWORK ENGINEER [facility] SPECIAL REQUESTS NO SPECIAL REQUEST 11/16/2024 1:53 PM TELECOMMUNICATIONS NETWORK ENGINEER [facility] GRAM STAIN RESULT NO NEUTROPHILS OR ORGANISMS SEEN 11/16/2024 3:25 PM TELECOMMUNICATIONS NETWORK ENGINEER [facility] CULTURE RESULT RARE PSEUDOMONAS ORYZIHABITANS 11/20/2024 8:40 AM TELECOMMUNICATIONS NETWORK ENGINEER [facility] TISSUE STRUCTURE OF RIGHT UPPER LIMB / Unknown 11/16/2024 1:41 PM TELECOMMUNICATIONS NETWORK ENGINEER Narrative Organism Antibiotic Method Susceptibility Pseudomonas oryzihabitans CEFTAZIDIME DAVID (ETEST) 0.5: Sensitive Pseudomonas oryzihabitans GENTAMICIN DAVID (ETEST) 0.094: Sensitive Pseudomonas oryzihabitans MEROPENEM DAVID (ETEST) 0.012: Sensitive Pseudomonas oryzihabitans CIPROFLOXACIN DAVID (ETEST) 0.032: Sensitive Pseudomonas oryzihabitans TRIMETH-SULFAMETH. DAVID (ETES T) 1.0: Resistant Pseudomonas oryzihabitans PIPRACIL/TAZO DAVID (ETEST) 3: Sensitive Andrey Colon MD MICROBIOLOGY - GENERAL OR DERABLES Final Result [facility] [address] [place] [address], [id number] * (ABNORMAL) CULTURE, FUNGUS (11/16/2024 1:41 PM TELECOMMUNICATIONS NETWORK ENGINEER) SOURCE ([place]) ARM,RIGHT 11/16/2024 1:53 PM TELECOMMUNICATIONS NETWORK ENGINEER [facility] CULTURE RESULT SEE NOTE 02:13 PM(A) 12/15/2024 2:13 PM TELECOMMUNICATIONS NETWORK ENGINEER [facility] Comment: Test Result Flag Unit RefValue Fungal Culture, Routine A SOURCE: ARM, RIGHT, ARM,RIGHT TISSUE FUNGAL CULTURE, ROUTINE FINAL TRICHODERMA sp Semi-Urgent Result. Test Performed by: [address] [address] Adjuster Piano Action: Moody Stinson Ph.D.; CLIA# [id number] TISSUE STRUCTURE OF RIGHT UPPER LIMB / Unknown 11/16/2024 1:41 PM TELECOMMUNICATIONS NETWORK ENGINEER us Andrey Colon MD MICROBIOLOGY - GENERAL OR DERABLES Final Result Performing Organization Address City/[facility]/ZIP Co de Phone Number [facility] [address] [place] [address] [facility] [address] [place] [address], [place] [phone] [id number] * CULTURE, ANAEROBIC (11/16/2024 1:41 PM TELECOMMUNICATIONS NETWORK ENGINEER) SPEC DESCRIPTION ARM,RIGHT 11/16/2024 1:53 PM TELECOMMUNICATIONS NETWORK ENGINEER [facility] SPECIAL REQUESTS NO SPECIAL REQUEST 11/16/2024 1:53 PM TELECOMMUNICATIONS NETWORK ENGINEER [facility] CULTURE RESULT NO ANAEROBES ISOLATED 11/20/2024 8:41 AM TELECOMMUNICATIONS NETWORK ENGINEER [facility] TISSUE STRUCTURE OF RIGHT UPPER LIMB / Unknown 11/16/2024 1:41 PM TELECOMMUNICATIONS NETWORK ENGINEER us Andrey Colon MD MICROBIOLOGY - GENERAL OR DERABLES Final Result Performing Organization Address [facility] Co de Phone Number [facility] [address] [place] [address], [place] [phone] * SURG XR FLUOROSCOPY (11/16/2024 11:58 AM TELECOMMUNICATIONS NETWORK ENGINEER) Anatomical Region Laterality Modality Undefined Radio Fluoroscop y 11/16/2024 11:5 8 AM TELECOMMUNICATIONS NETWORK ENGINEER Narrative 11/16/2024 11:58 AM TELECOMMUNICATIONS NETWORK ENGINEER This report does not contain a radiologist's interpretation. Please review associated procedure and/or operative report. Procedure Note Devonte Asif MD - 11/17/2024 This report does not contain a radiologist's interpretation. Please review associated procedure and/or operative report. us Andrey Colon MD IMAGES ONLY Final Res ult * (ABNORMAL) ARTERIAL BLOOD GAS (11/16/2024 11:17 AM TELECOMMUNICATIONS NETWORK ENGINEER) PH ARTERIAL 7.33(L) 7.35 - 7.45 11/16/2024 11:20 AM [facility] PCO2 44.2 35.0 - 45.0 MMHG 11/16/2024 11:20 AM [facility] PO2 82.4(L) 83.0 - 108.0 MMHG 11/16/2024 11:20 AM [facility] BICARB ARTERIAL 22.7 22 - 26 MMOL/L 11/16/2024 11:20 AM [facility] TOTAL CO2 CAPILLARY 24.0 23 - 27 MMOL/L 11/16/2024 11:20 AM [facility] BASE DEFICIT 2.9 0.0 - 3.0 MMOL/L 11/16/2024 11:20 AM [facility] O2 Saturation 96 95 - 98 % 11/16/2024 11:20 AM [facility] ANA MARIA TEST POSITIVE 11/16/2024 11:17 AM [facility] OXYGEN STATUS room ar 11/16/2024 11:17 AM [facility] DRAW SITE ARTERIAL LT RADIAL 11/16/2024 11:17 AM [facility] 11/16/2024 11:1 7 AM TELECOMMUNICATIONS NETWORK ENGINEER us Giovanna Perez HOT STRIP MILL SUPERVISOR LABORATORY Final Result Performing Organization Address City/State/[facility] Co de Phone Number [facility] [address] [place] [address], [id number] * Intubation (11/16/2024 11:11 AM TELECOMMUNICATIONS NETWORK ENGINEER) Narrative Bo Marie MD - 11/16/2024 11:11 AM TELECOMMUNICATIONS NETWORK ENGINEER Anmol Han MD 11/16/2024 11:51 AM Intubation Date/Time: 11/16/2024 11:11 AM Performed by: Anmol Han MD Authorized by: Bo Marie MD Consent: Consent obtained: Emergent situation Dorr protocol: Required blood products, implants, devices, and [...] Appropriate position Post-procedure details: Procedure completion: Tolerated Bo Marie MD PROCEDURE/MINOR SURGICAL ORDERAB LES Final Result * CTA UP EXT RT (11/16/2024 10:35 AM TELECOMMUNICATIONS NETWORK ENGINEER) Anatomical Region Laterality Modality Extremity Computed Tomogra phy 11/16/2024 11:0 7 AM TELECOMMUNICATIONS NETWORK ENGINEER Impressions 11/16/2024 11:27 AM TELECOMMUNICATIONS NETWORK ENGINEER IMPRESSION: 1. Apparent cut off of enhancement [...] 11/16/2024 11:07 AM Narrative 11/16/2024 11:27 AM TELECOMMUNICATIONS NETWORK ENGINEER [facility] [address] [place], [place] [address] EXAMINATION: CTA CHEST, ABDOMEN AND PELVIS CLINICAL [...] Procedure Note Douglas Weaver MD - 11/16/[address] [address] EXAMINATION: CTA CHEST, ABDOMEN AND PELVIS CLINICAL [...] Result * CTA CHEST+ABD+PEL (11/16/2024 10:35 AM TELECOMMUNICATIONS NETWORK ENGINEER) Anatomical Region Laterality Modality Chest, Abdomen, Pelvis Computed Tomography 11/16/2024 11:0 7 AM TELECOMMUNICATIONS NETWORK ENGINEER Impressions 11/16/2024 11:27 AM TELECOMMUNICATIONS NETWORK ENGINEER IMPRESSION: 1. Apparent cut off of enhancement [...] 11/16/2024 11:07 AM Narrative 11/16/2024 11:27 AM TELECOMMUNICATIONS NETWORK ENGINEER [place] [address] EXAMINATION: CTA CHEST, ABDOMEN AND PELVIS CLINICAL [...] Procedure Note Douglas Weaver MD - 11/16/[address] [address] EXAMINATION: CTA CHEST, ABDOMEN AND PELVIS CLINICAL [...] By: Douglas Weaver MD, 11/16/2024 11:07 AM us Bo Marie MD CT Final Result * XR CHEST PA OR AP 1V (11/16/2024 10:13 AM TELECOMMUNICATIONS NETWORK ENGINEER) Anatomical Region Laterality Modality Chest Radiographic Tresa ging 11/16/2024 10:1 9 AM TELECOMMUNICATIONS NETWORK ENGINEER Impressions 11/16/2024 10:21 AM TELECOMMUNICATIONS NETWORK ENGINEER IMPRESSION: 1. Endotracheal tube with the distal tip terminating above the erickson. 2. Shallow inspiration with bronchovascular crowding. Referred By: VIOLETA VALDEZ Interpreted By: Christina Hernández MD, 11/16/2024 10:19 AM Narrative 11/16/2024 10:21 AM TELECOMMUNICATIONS NETWORK ENGINEER [address] [address] EXAMINATION: Chest x-ray 1 view. 11/16/2024 10:20 [...] Procedure Note Christina Hernández MD - 11/16/[address] [address] EXAMINATION: Chest x-ray 1 view. 11/16/2024 10:20 [...] * TYPE & SCREEN (11/16/2024 10:04 AM TELECOMMUNICATIONS NETWORK ENGINEER) ABO/RH A POSITIVE 11/16/2024 10:52 AM TELECOMMUNICATIONS NETWORK ENGINEER [facility] ANTIBODY SCREEN NEGATIVE 11/16/2024 10:52 AM TELECOMMUNICATIONS NETWORK ENGINEER [facility] SAMPLE EXPIRATION 11/19/2024,2 359 11/16/2024 10:15 AM TELECOMMUNICATIONS NETWORK ENGINEER [facility] 11/16/2024 10:0 4 AM TELECOMMUNICATIONS NETWORK ENGINEER Violeta Valdez MD BLOOD BANK TEST ORDERABLES Fin al Result Performing Organization Address [facility] Co de Phone Number [facility] [address] [place] [address], [phone] * PARTIAL THROMBOPLASTIN TIME,PTT (11/16/2024 10:04 AM TELECOMMUNICATIONS NETWORK ENGINEER) Pathologist [facility] PTT 27.5 25.1 - 36.5 SEC 11/16/2024 10:37 AM TELECOMMUNICATIONS NETWORK ENGINEER [facility] 11/16/2024 10:0 4 AM TELECOMMUNICATIONS NETWORK ENGINEER German Kennedy DO LABORATORY Final Result Performing Organization Address City/[facility] Co de Phone Number [facility] [address] [place] [address], [phone] * TROPONIN, QUANT (11/16/2024 10:04 AM TELECOMMUNICATIONS NETWORK ENGINEER) Pathologist [facility] TROPONIN I HIGH SENSITIVITY 5 0 - 78 ng/L 11/16/2024 11:49 AM TELECOMMUNICATIONS NETWORK ENGINEER [facility] 11/16/2024 10:0 4 AM TELECOMMUNICATIONS NETWORK ENGINEER [place] HOT STRIP MILL SUPERVISOR LABORATORY Final Result [facility] [address] [place] [address], [id number] * ETHANOL (11/16/2024 10:04 AM TELECOMMUNICATIONS NETWORK ENGINEER) ALCOHOL S/P/B ZERO 0 G/DL 11/16/2024 10:32 AM TELECOMMUNICATIONS NETWORK ENGINEER [facility] 11/16/2024 10:0 4 AM TELECOMMUNICATIONS NETWORK ENGINEER us German Kennedy DO LABORATORY Final Result Performing Organization Address [facility] Co de Phone Number [facility] [address] [place] [address], [id number] from Last 3 Months Insurance Advance Directives * Full Code (Latest Code Status on File) Date Activated Date Inactivated Comments 11/16/2024 10:18 AM 11/24/2024 3:33 PM Care Teams Clothing Sorter Relationship Specialty Start Date End Date Socrates Ramírez PA [address] [place] [phone] PCP - General PHYSICIAN MENTAL HEALTH TECHNICIAN 11/26/24
--- OUTSIDE RECORDS SUMMARY | 2025-01-07 20:30 | XMS_ITS | Clinical Summary ---
Author Organization [facility] Address [address] [place] [address] Phone Care Team Providers Care Project Buyer Name Role Phone Unavailable Primary Care Provider Unavailabl e Allergies No known active allergies Social History Tobacco Use Types Packs/Day Years Used Date Smoking Tobacco: Never Assessed Sex and Gender Information Value Date Recorded Sex Assigned at Not on file Legal Sex Male 3:49 AM ELECTRICAL SOFTWARE ENGINEER Gender Identity Not on file Sexual Orientation Not on file Plan of Treatment Not on file
--- NOTE | 2025-01-07 20:38 | ED_ITS ---
HPI - Allergic Reaction General Chief complaint: Allergic Reaction Stated complaint: rash Time Seen by Provider: 01/07/25 20:38 Source: patient Mode of arrival: ambulatory Limitations: no limitations History of Present Illness HPI narrative: 34-year-old male with a history of a 5 work accident on 11/15/2024 following which he sustained amputation of the right distal forearm and a chest wall wound, DVT of the right lower extremity on Eliquis presents to the ED with a 2 day history of -- generalized itching. patient has been taking Benadryl without any improvement. -- no rash noted. Patient has not had any recent antibiotics. Patient has not ingested any new foods. Patient has been itching to the point of causing skin abrasion over his left oreilly. No shortness of breath. No hoarseness of voice. No lightheadedness. MD complaint: allergic reaction Onset (ago): day(s) ( Two days) Exposure: unknown Symptoms: itching Severity: severe Treatment prior to arrival: benadryl Previous Allergic Reaction History: none Related Data Home Medications ?Medication ?Instructions ?Recorded ?Confirmed ?Last Taken ?Type apixaban 5 mg tablet (Eliquis) 5 mg PO Q12H 12/21/24 12/21/24 Unknown History cyclobenzaprine 10 mg tablet 10 mg PO Q8H PRN MUSCLE RELAXOR 12/21/24 12/21/24 Unknown History duloxetine 60 mg capsule,delayed 60 mg PO DAILY 12/21/24 12/21/24 Unknown His tory release famotidine 20 mg tablet 20 mg PO DAILY GERD 12/21/24 12/21/24 Unknown History morphine 30 mg tablet,extended 30 mg PO Q8H PAIN 12/21/24 12/21/24 Unknown History release oxycodone 10 mg tablet 10 mg PO Q6H PRN pain 12/21/24 12/21/24 Unknown History pregabalin 200 mg capsule 200 mg PO Q8H PAIN 12/21/24 12/21/24 Unknown History alprazolam 2 mg tablet 2 mg PO DAILY 01/07/25 01/07/25 Unknown History Allergies Allergy/AdvReac Type Severity Reaction Status Date / Time No Known Allergies Allergy Verified 01/07/25 20:36 Review of Systems Review of Systems: All systems reviewed & are unremarkable except as noted in HPI and below Constitutional: Constitutional: Reports as per HPI and Reports no additional constitutional complaints Eyes: Eyes: Reports as per HPI and Reports no additional eye complaints ENT: Reports system reviewed and no additional complaints, except as documented and Reports as per HPI Cardiovascular: Cardiovascular: Reports as per HPI and Reports no additional cardiovascular complaints Respiratory: Respiratory: Reports as per HPI and Reports no additional respiratory complaints Gastrointestinal: Gastrointestinal: Reports as per HPI and Reports no additional gastrointestinal complaints Genitourinary: Genitourinary: Reports no additional male genitourinary complaints and Reports as per HPI Musculoskeletal: Musculoskeletal: Reports no additional musculoskeletal complaints and Reports as per HPI Comments: amputation of the right distal forearm Integumentary/Breasts: Skin/Breast: Reports system reviewed and no additional complaints, except as docu and Reports as per HPI Comments: left upper chest wall wound has healed. Right medial thigh wound which is healing Neurologic: Reports system reviewed and no additional complaints, except as documented Psychiatric: Psychiatric: Reports no additional psychiatric complaints and Reports as per HPI Endocrine: Endocrine: Reports no additional endocrine complaints and Reports as per HPI Hematologic/Lymphatic: Hematologic/Lymphatic: Reports no additional hematologic/lymphatic complaints and Reports as per HPI Allergic/Immunologic: Allergic/Immunologic: Reports no additional allergic/immunologic complaints and Reports as per HPI Comments: no erythematous rash / urticaria noted. Patient has generalized itching. PMFSH Past Medical History Medical History Wound, open, ear, Eustachian tube Otitis media Broken nose Surgical History Surgical History History of appendectomy Social History Social History Smoking packs per day: 2 Smoking cigarettes per day: 40.0 Smoking status: Current every day smoker Tobacco type: cigarettes Substance use: never Exam Narrative: Blood press Const: General: no acute distress Nutritional Appearance: well nourished Orientation/consciousness: patient oriented x3 Limitations: no limitations HENMT: Head: normal to inspection Ears: external ears normal Face/Nose/Sinus: Normal external nose present Face and sinus: normal facial exam Mouth: Yes Normal oral and palatal mucosa present Throat: posterior oropharynx normal Eyes: Conjunctivae: conjunctivae normal Pupils: Equal, round and reactive pupils present EOM: EOMs intact bilaterally Direct Ophthalmoscopy: no photophobia Neck: Neck: normal visual inspection, no lymphadenopathy and no meningeal signs Chest: Chest palpation & inspection: normal inspection of the chest Resp: Effort & Inspection: normal respiratory effort Auscultation: clear to auscultation bilaterally Cardio: Rate: regular rate Rhythm: regular rhythm GI: GI Palp: Yes Soft to palpation Auscultation: normal bowel sounds Other: no tenderness/ rigidity /rebound. : General: Yes no CVA tenderness Back/Spine/Pelvis: Back: no CVA tenderness Skin: General skin exam: normal color Rashes: no rashes Wounds: wounds noted ( Wounds noted in the left upper chest and right medial thigh) Neuro: General: patient oriented x3, moves all extremities, no meningeal signs, no focal motor deficits and CN's II-XI intact bilaterally Cranial nerves: Yes Nystagmus not present Speech: normal speech Extrem: General: normal to inspection and no clubbing, cyanosis or edema Other: amputation of the right distal forearm Psych: Mental Status: mental status grossly normal Affect: normal affect Attitude: cooperative Course Course Emergency Course: generalized itching without any rash. No new antibiotics. No new foods ingested. No history of drug use. No history of obsessive-compulsive disorder. Vital Signs Vital signs: Vital Signs Temperature 36.9 C 01/07/25 20:28 Pulse Rate 82 01/07/25 20:28 Respiratory Rate 18 01/07/25 20:28 Blood Pressure 130/92 H 01/07/25 20:28 Pulse Oximetry 98 01/07/25 20:28 Oxygen Delivery Room Air 01/07/25 20:28 Temperature 36.9 C 01/07/25 20:28 Pulse Rate 67 01/07/25 21:39 Respiratory Rate 16 01/07/25 21:39 Blood Pressure 114/75 01/07/25 21:39 Pulse Oximetry 98 01/07/25 21:39 Oxygen Delivery Room Air 01/07/25 21:39 MDM - Allergic Reaction MDM Narrative Medical decision making narrative: Generalized itching Differential Diagnosis Differential diagnosis: Likely allergic reaction and contact dermatitis Discharge Plan Discharge Clinical Impression: Generalized pruritus Patient Disposition: Home, Self-Care Condition: Stable Instructions: Antibiotic Form, Itchy Skin (ED) Patient Language: [place]ian Prescriptions: No Action cyclobenzaprine 10 mg tablet 10 mg PO Q8H PRN (Reason: MUSCLE RELAXOR) morphine 30 mg tablet extended release 30 mg PO Q8H famotidine 20 mg tablet 20 mg PO DAILY duloxetine 60 mg capsule,delayed release(DR/EC) 60 mg PO DAILY pregabalin 200 mg capsule 200 mg PO Q8H oxycodone 10 mg tablet 10 mg PO Q6H PRN (Reason: pain) Eliquis 5 mg tablet 5 mg PO Q12H alprazolam 2 mg tablet 2 mg PO DAILY Follow-up/Referrals: UNKNOWN,DOCTOR [Non-Staff] - Time of Disposition: 21:44
[2025-01-07] MEDS: methylPREDNISolone SOD SUCC 125 MG VIAL IM (21:07)
--- OUTSIDE RECORDS SUMMARY | 2025-01-07 21:08 | XMS_ITS | Clinical Summary ---
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 traumatic amputation [...] CULTURE, TISSUE W/GRAM STAIN (11/16/2024 1:41 PM ARMED GUARD) SPEC DESCRIPTION ARM,RIGHT 11/16/2024 1:53 PM ARMED GUARD [facility] SPECIAL REQUESTS NO SPECIAL REQUEST 11/16/2024 1:53 PM ARMED GUARD [facility] GRAM STAIN RESULT NO NEUTROPHILS OR ORGANISMS SEEN 11/16/2024 3:25 PM ARMED GUARD [facility] CULTURE RESULT RARE PSEUDOMONAS ORYZIHABITANS 11/20/2024 8:40 AM ARMED GUARD [facility] TISSUE STRUCTURE OF RIGHT UPPER LIMB / Unknown 11/16/2024 1:41 PM ARMED GUARD Narrative Organism Antibiotic Method Susceptibility Pseudomonas oryzihabitans CEFTAZIDIME DAVID (ETEST) 0.5: Sensitive Pseudomonas oryzihabitans GENTAMICIN DAVID (ETEST) 0.094: Sensitive Pseudomonas oryzihabitans MEROPENEM DAVID (ETEST) 0.012: Sensitive Pseudomonas oryzihabitans CIPROFLOXACIN DAVID (ETEST) 0.032: Sensitive Pseudomonas oryzihabitans TRIMETH-SULFAMETH. DAVID (ETES T) 1.0: Resistant Pseudomonas oryzihabitans PIPRACIL/TAZO DAVID (ETEST) 3: Sensitive Andrey Colon MD MICROBIOLOGY - GENERAL OR DERABLES Final Result [facility] [address] [place] [address], [phone] * (ABNORMAL) CULTURE, FUNGUS (11/16/2024 1:41 PM ARMED GUARD) SOURCE ([place]) ARM,RIGHT 11/16/2024 1:53 PM ARMED GUARD [facility] CULTURE RESULT SEE NOTE 02:13 PM(A) 12/15/2024 2:13 PM ARMED GUARD [facility] Comment: Test Result Flag Unit RefValue Fungal Culture, Routine A SOURCE: ARM, RIGHT, ARM,RIGHT TISSUE FUNGAL CULTURE, ROUTINE FINAL TRICHODERMA sp Semi-Urgent Result. Test Performed by: [address] [address] Sql Etl Developer: Moody Stinson Ph.D.; CLIA# [id number] TISSUE STRUCTURE OF RIGHT UPPER LIMB / Unknown 11/16/2024 1:41 PM ARMED GUARD us Andrey Colon MD MICROBIOLOGY - GENERAL OR DERABLES Final Result Performing Organization Address City/[facility]/ZIP Co de Phone Number [facility] [address] [place] [address] [facility] [address] [place] [address], [place] [phone] * CULTURE, ANAEROBIC (11/16/2024 1:41 PM ARMED GUARD) SPEC DESCRIPTION ARM,RIGHT 11/16/2024 1:53 PM ARMED GUARD [facility] SPECIAL REQUESTS NO SPECIAL REQUEST 11/16/2024 1:53 PM ARMED GUARD [facility] CULTURE RESULT NO ANAEROBES ISOLATED 11/20/2024 8:41 AM ARMED GUARD [facility] TISSUE STRUCTURE OF RIGHT UPPER LIMB / Unknown 11/16/2024 1:41 PM ARMED GUARD us Andrey Colon MD MICROBIOLOGY - GENERAL OR DERABLES Final Result Performing Organization Address [facility] Co de Phone Number [facility] [address] [place] [address], [place] [phone] * SURG XR FLUOROSCOPY (11/16/2024 11:58 AM ARMED GUARD) Anatomical Region Laterality Modality Undefined Radio Fluoroscop y 11/16/2024 11:5 8 AM ARMED GUARD Narrative 11/16/2024 11:58 AM ARMED GUARD This report does not contain a radiologist's interpretation. Please review associated procedure and/or operative report. Procedure Note Devonte Asif MD - 11/17/2024 This report does not contain a radiologist's interpretation. Please review associated procedure and/or operative report. us Andrey Colon MD IMAGES ONLY Final Res ult * (ABNORMAL) ARTERIAL BLOOD GAS (11/16/2024 11:17 AM ARMED GUARD) PH ARTERIAL 7.33(L) 7.35 - 7.45 11/16/2024 [...] [facility] 11/16/2024 11:1 7 AM ARMED GUARD us Giovanna Perez CHIEF ADMINISTRATIVE OFFICER LABORATORY Final Result Performing Organization Address City/State/[facility] Co de Phone Number [facility] [address] [place] [address], [phone] * Intubation (11/16/2024 11:11 AM ARMED GUARD) Narrative Bo Marie MD - 11/16/2024 11:11 AM ARMED GUARD Anmol Han MD 11/16/2024 11:51 AM Intubation Date/Time: 11/16/2024 11:11 AM Performed by: Anmol Han MD Authorized by: Bo Marie MD Consent: Consent obtained: Emergent situation Emerado protocol: Required blood products, implants, devices, and [...] CTA UP EXT RT (11/16/2024 10:35 AM ARMED GUARD) Anatomical Region Laterality Modality Extremity Computed Tomogra phy 11/16/2024 11:0 7 AM ARMED GUARD Impressions 11/16/2024 11:27 AM ARMED GUARD IMPRESSION: 1. Apparent cut off of enhancement [...] 11/16/2024 11:07 AM Narrative 11/16/2024 11:27 AM ARMED GUARD [facility] [address] [place], [place] [address] EXAMINATION: CTA CHEST, ABDOMEN AND PELVIS CLINICAL [...] Procedure Note Douglas Weaver MD - 11/16/[address] [address] EXAMINATION: CTA CHEST, ABDOMEN AND PELVIS CLINICAL [...] additional chronic, incidental, nonemergentfindings elsewhere. Ordered By: OB MARIE Interpreted By: Douglas Weaver MD, 11/16/2024 11:07 AM Bo Marie MD CT Final Result * CTA CHEST+ABD+PEL (11/16/2024 10:35 AM ARMED GUARD) Anatomical Region Laterality Modality Chest, Abdomen, Pelvis Computed Tomography 11/16/2024 11:0 7 AM ARMED GUARD Impressions 11/16/2024 11:27 AM ARMED GUARD IMPRESSION: 1. Apparent cut off of enhancement [...] 11/16/2024 11:07 AM Narrative 11/16/2024 11:27 AM ARMED GUARD [place] [address] EXAMINATION: CTA CHEST, ABDOMEN AND PELVIS CLINICAL [...] Procedure Note Douglas Weaver MD - 11/16/[address] [address] EXAMINATION: CTA CHEST, ABDOMEN AND PELVIS CLINICAL [...] PA OR AP 1V (11/16/2024 10:13 AM ARMED GUARD) Anatomical Region Laterality Modality Chest Radiographic Tresa ging 11/16/2024 10:1 9 AM ARMED GUARD Impressions 11/16/2024 10:21 AM ARMED GUARD IMPRESSION: 1. Endotracheal tube with the distal tip terminating above the erickson. 2. Shallow inspiration with bronchovascular crowding. Referred By: VIOLETA VALDEZ Interpreted By: Christina Hernández MD, 11/16/2024 10:19 AM Narrative 11/16/2024 10:21 AM ARMED GUARD [address] [address] EXAMINATION: Chest x-ray 1 view. 11/16/2024 10:20 [...] Procedure Note Christina Hernández MD - 11/16/[address] [address] EXAMINATION: Chest x-ray 1 view. 11/16/2024 10:20 [...] Referred By: VIOLETA VALDEZ Interpreted By: Christina Hernándze MD, 11/16/2024 10:19 AM Bo Marie MD GENERAL IMAGING Final Result * TYPE & SCREEN (11/16/2024 10:04 AM ARMED GUARD) ABO/RH A POSITIVE 11/16/2024 10:52 AM ARMED GUARD [facility] ANTIBODY SCREEN NEGATIVE 11/16/2024 10:52 AM ARMED GUARD [facility] SAMPLE EXPIRATION 11/19/2024,2 359 11/16/2024 10:15 AM ARMED GUARD [facility] 11/16/2024 10:0 4 AM ARMED GUARD Violeta Valdez MD BLOOD BANK TEST ORDERABLES Fin al Result Performing Organization Address [facility] Co de Phone Number [facility] [address] [place] [address], [phone] * PARTIAL THROMBOPLASTIN TIME,PTT (11/16/2024 10:04 AM ARMED GUARD) Pathologist [facility] PTT 27.5 25.1 - 36.5 SEC 11/16/2024 10:37 AM ARMED GUARD [facility] 11/16/2024 10:0 4 AM ARMED GUARD German Kennedy DO LABORATORY Final Result Performing Organization Address City/[facility] Co de Phone Number [facility] [address] [place] [id number], [phone] * TROPONIN, QUANT (11/16/2024 10:04 AM ARMED GUARD) Pathologist [facility] TROPONIN I HIGH SENSITIVITY 5 0 - 78 ng/L 11/16/2024 11:49 AM ARMED GUARD [facility] 11/16/2024 10:0 4 AM ARMED GUARD [place] G Kras CHIEF ADMINISTRATIVE OFFICER LABORATORY Final Result [facility] [address] [place] [address], [phone] * ETHANOL (11/16/2024 10:04 AM ARMED GUARD) ALCOHOL S/P/B ZERO 0 G/DL 11/16/2024 10:32 AM ARMED GUARD [facility] 11/16/2024 10:0 4 AM ARMED GUARD us German Kennedy DO LABORATORY Final Result Performing Organization Address [facility] Co de Phone Number [facility] [address] [place] [address], [phone] from Last 3 Months Insurance Advance Directives * Full Code (Latest Code Status on File) Date Activated Date Inactivated Comments 11/16/2024 10:18 AM 11/24/2024 3:33 PM Care Teams Welding Instructor Relationship Specialty Start Date End Date Socrates Ramírez PA [address] [place] [phone] PCP - General PHYSICIAN FIRE EXTINGUISHER REPAIRER INSPECTOR 11/26/24
--- OUTSIDE RECORDS SUMMARY | 2025-01-07 21:08 | XMS_ITS | Clinical Summary ---
Author Organization [facility] Address [address] [place] [address] Phone Care Team Providers Care Bench Chemist Name Role Phone Unavailable Primary Care Provider Unavailabl e Allergies No known active allergies Social History Tobacco Use Types Packs/Day Years Used Date Smoking Tobacco: Never Assessed Sex and Gender Information Value Date Recorded Sex Assigned at Not on file Legal Sex Male 3:49 AM FORM RAISER Gender Identity Not on file Sexual Orientation Not on file Plan of Treatment Not on file
--- OUTSIDE RECORDS SUMMARY | 2025-01-07 21:08 | XMS_ITS | Encounter Summary ---
Author Organization [facility] Address [address] [place] [address] Care Team Providers Care Hand Washer Name Role Phone Socrates Ramírez Primary Care Provider [phone] Encounter Details Date Type Department Care Team (Late st Contact Info) Description 04/19/2019 Abstract [facility] CONVERSION [address] [place], [place] [id number] , Generic Conversion, Social History Tobacco Use Types Packs/Day Years Used Date Smoking Tobacco: Never Assessed Sex and Gender Information Value Date Recorded Sex Assigned at Male 11/26/2024 1:28 PM DIRECTOR OF RESTAURANT OPERATIONS Legal Sex Male 5:52 PM DIRECTOR OF RESTAURANT OPERATIONS Gender Identity Not on file Sexual Orientation Straight 12/31/2024 9: 23 AM DIRECTOR OF RESTAURANT OPERATIONS documented as of this encounter Plan of Treatment Upcoming Encounters Date Type Department Care Team (Late st Contact Info) Description 01/09/2025 9:00 AM DIRECTOR OF RESTAURANT OPERATIONS Appointment [facility] [address] [place] [address] Shea Stein, CRM MARKETING SPECIALIST [address] [place] [address] documented as of this encounter Visit Diagnoses Not on filedocumented in this encounter Care Teams Hand Washer Relationship Specialty Start Date End Date Socrates Ramírez PA [address] [place] [phone] PCP - General PHYSICIAN PATIENT CARE DIRECTOR 11/26/24 documented as of this encounter
[2025-01-07 21:39] VITALS: BP 114/75; PULSE 67; RESP 16; O2SAT 98
== END 2025-01-07 21:59 | disposition home or self-care (01) ==
LOC: CHSED 21:06
PROVIDERS: Emergency Provider Internal Medicine Critical Care Medicine; PCP Physician Assistant
DX: L29.9 Pruritus, unspecified (principal); F17.210 Nicotine dependence, cigarettes, uncomplicated; Z79.01 Long term (current) use of anticoagulants
CPT/HCPCS: 96372; 99283; J2919

== ENCOUNTER 2025-01-09 17:10 | Emergency (ER) | payer OTHER, SELFPAY ==
[2025-01-09] VITALS (14 sets, daily range): BP systolic 115–127; BP diastolic 63–82; PULSE 60–75; RESP 12–16; TEMP 36.6; O2SAT 90–98
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
--- NOTE | 2025-01-09 18:39 | PC.NURSE ---
talked to pt and regarding lethargic behavior and doctor wanting to use narcan, pt and declined. states i dont think that is needed . dr sen informed of same.
--- NOTE | 2025-01-09 19:10 | PC.NURSE ---
report to richard collier
[2025-01-09] MEDS: NALOXONE HCL INJ 2 MG/2 ML AMP 1 MG NASAL (19:16)
== END 2025-01-09 20:05 | disposition home or self-care (01) ==
PROVIDERS: Emergency Provider Emergency Medicine; PCP Physician Assistant
DX: F11.920 Opioid use, unspecified with intoxication, uncomplicated (principal); S06.0X0A Concussion without loss of consciousness, initial encounter; F17.210 Nicotine dependence, cigarettes, uncomplicated; Z86.718 Personal history of other venous thrombosis and embolism; Z79.01 Long term (current) use of anticoagulants; Z89.111 Acquired absence of right hand; W22.09XA Striking against other stationary object, initial encounter; Y99.0 Civilian activity done for income or pay
CPT/HCPCS: 70450; 72125; 99284; J2310

== ENCOUNTER 2025-03-23 13:22 | Outpatient (CLI) | payer OTHER, SELFPAY ==
--- NOTE | ~2025-03-23 | US_ITS ---
EXAMINATION: US venous doppler LE RT DATE: 03/23/2025 13:44 INDICATION: Right lower limb deep venous thrombosis on outside institution 3 months prior. Patient cu rrently anticoagulated. TECHNIQUE: Grayscale ultrasound images without and with compression and Doppler ultrasound images of the right lower extremity veins were obtained. COMPARISON: None. FINDINGS: Noncompressible occlusive appearing thrombus in one of the paired right peroneal veins. The second ri ght peroneal vein is patent and compressible. The visualized portions of right common femoral vein, p rofunda (deep) femoral vein, femoral vein, popliteal vein, peroneal trunk, posterior tibial veins, ga strocnemius vein and greater saphenous vein outflow are patent. IMPRESSION: 1. Cjxyc-mme-bucn occlusive deep venous thrombosis in one of the paired peroneal veins at the right calf. Reviewed, dictated and finalized at location A. IMPRESSION: 1. Fcibu-foh-uvcq occlusive deep venous thrombosis in one of the paired perone al veins at the right calf.
--- OUTSIDE RECORDS SUMMARY | 2025-03-23 13:25 | XMS_ITS | Clinical Summary ---
Author Organization 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
--- OUTSIDE RECORDS SUMMARY | 2025-03-23 13:25 | XMS_ITS | Encounter Summary ---
Author Organization [facility] Address [address] [place] [address] Care Team Providers Care Delivery Route Driver Name Role Phone Socrates Ramírez Primary Care Provider [phone] Encounter Details Date Type Department Care Team (Late st Contact Info) Description 04/19/2019 Abstract [facility] CONVERSION [address] [place] [address] , Generic Conversion, Social History Tobacco Use Types Packs/Day Years Used Date Smoking Tobacco: Never Assessed Sex and Gender Information Value Date Recorded Sex Assigned at Male 11/26/2024 1:28 PM POLE SANDER OPERATOR Legal Sex Male 5:52 PM POLE SANDER OPERATOR Gender Identity Not on file Sexual Orientation Straight 12/31/2024 9: 23 AM POLE SANDER OPERATOR documented as of this encounter Plan of Treatment Not on file documented as of this encounter Visit Diagnoses Not on filedocumented in this encounter Care Teams Delivery Route Driver Relationship Specialty Start Date End Date Socrates Ramírez PA [address] [place] [phone] PCP - General PHYSICIAN DONOR RECRUITER 11/26/24 documented as of this encounter
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
== END 2025-03-23 13:23 | disposition home or self-care (01) ==
LOC: CHSIMG 13:23
PROVIDERS: PCP Physician Assistant; Visit Provider Physician Assistant
DX: I82.451 Acute embolism and thrombosis of right peroneal vein (principal)
CPT/HCPCS: 93971

== ENCOUNTER 2025-03-31 07:46 | Emergency (ER) | payer OTHER, SELFPAY ==
[2025-03-31 07:46] VITALS: BP 127/95; PULSE 71; RESP 14; TEMP 36.1; O2SAT 98
--- OUTSIDE RECORDS SUMMARY | 2025-03-31 07:49 | XMS_ITS | Encounter Summary ---
Author Organization [facility] Address [address] [place] [address] Care Team Providers Care Rand Butter Name Role Phone Socrates Ramírez Primary Care Provider [phone] Encounter Details Date Type Department Care Team (Late st Contact Info) Description 04/19/2019 Abstract [facility] CON[facility] [address] [place] [address] , Generic Conversion, Social History Tobacco Use Types Packs/Day Years Used Date Smoking Tobacco: Never Assessed Sex and Gender Information Value Date Recorded Sex Assigned at Male 11/26/2024 1:28 PM PRACTICE BILLING ASSOCIATE Legal Sex Male 5:52 PM PRACTICE BILLING ASSOCIATE Gender Identity Not on file Sexual Orientation Straight 12/31/2024 9: 23 AM PRACTICE BILLING ASSOCIATE documented as of this encounter Plan of Treatment Not on file documented as of this encounter Visit Diagnoses Not on filedocumented in this encounter Care Teams Rand Butter Relationship Specialty Start Date End Date Socrates Ramírez PA [address] [place] [phone] PCP - General PHYSICIAN ELECTRIC DISTRIBUTION CHECKER 11/26/24 documented as of this encounter
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
--- OUTSIDE RECORDS SUMMARY | 2025-03-31 07:49 | XMS_ITS | Clinical Summary ---
Author Organization [facility] Address [address] [place] [address] Phone Care Team Providers Care Adobe Layer Name Role Phone Unavailable Primary Care Provider Unavailabl e Allergies No known active allergies Social History Tobacco Use Types Packs/Day Years Used Date Smoking Tobacco: Never Assessed Sex and Gender Information Value Date Recorded Sex Assigned at Not on file Legal Sex Male 3:49 AM INDUSTRIAL PHOTOGRAPHER Gender Identity Not on file Sexual Orientation Not on file Plan of Treatment Not on file
--- NOTE | 2025-03-31 08:06 | ED.EYEPROB ---
HPI - Eye Problem General Chief complaint: Eye Problems Stated complaint: right eye pain Time Seen by Provider: 03/31/25 07:48 Source: patient Mode of arrival: ambulatory Limitations: no limitations History of Present Illness HPI Narrative: Patient is a 34-year-old male with a significant past medical history that presents today for an eye injury. His right eye is very painful he does not remember having any inciting event the feels like there is something in his eye and or his eyes very scratch and it hurts to blinking with his eyes close and it really hurts more with his eyes open. He has not had any contact to anyone with conjunctivitis. He says that it is feels like something is stabbing his eye and very painful. He said this started this morning when he woke up. chief complaint: eye pain and eye redness Onset (ago): hour(s) Onset description: sudden Duration: constant Location: right eye Eye Symptoms: burning, redness, pain and foreign body sensation Place: home Mechanism: none Severity: severe Severity scale (1-10): 8 If Pain, Quality: sharp and burning Related Data Patient tetanus UTD: Yes Home Medications Medication Instructions Recorded Confirmed Last Taken Type apixaban 5 mg tablet (Eliquis) 5 mg PO Q12H 12/21/24 03/05/25 Unknown History cyclobenzaprine 10 mg tablet 10 mg PO Q8H PRN MUSCLE RELAXOR 12/21/24 03/05/25 Unknown History duloxetine 60 mg capsule,delayed 60 mg PO DAILY 12/21/24 03/05/25 Unknown History release oxycodone 10 mg tablet 10 mg PO Q6H PRN pain 12/21/24 03/05/25 Unknown History pregabalin 200 mg capsule 200 mg PO Q8H PAIN 12/21/24 03/05/25 Unknown History alprazolam 2 mg tablet 2 mg PO DAILY 01/07/25 03/05/25 Unknown History Allergies Allergy/AdvReac Type Severity Reaction Status Date / Time No Known Allergies Allergy Verified 03/31/25 07:51 Review of Systems Review of Systems: All systems reviewed & are unremarkable except as noted in HPI and below Constitutional: Constitutional: Reports as per HPI Eyes: Eyes: Reports as per HPI Comments: Eye pain worse with opening of eye, feels like there is a foreign body in eye and or a scratch ENT: Reports system reviewed and no additional complaints, except as documented Cardiovascular: Cardiovascular: Reports no additional cardiovascular complaints Respiratory: Respiratory: Reports no additional respiratory complaints Gastrointestinal: Gastrointestinal: Reports no additional gastrointestinal complaints Genitourinary: Genitourinary: Reports no additional male genitourinary complaints Musculoskeletal: Musculoskeletal: Reports no additional musculoskeletal complaints Integumentary/Breasts: Skin/Breast: Reports system reviewed and no additional complaints, except as docu Neurologic: Reports system reviewed and no additional complaints, except as documented Psychiatric: Psychiatric: Reports no additional psychiatric complaints Endocrine: Endocrine: Reports no additional endocrine complaints Hematologic/Lymphatic: Hematologic/Lymphatic: Reports no additional hematologic/lymphatic complaints Allergic/Immunologic: Allergic/Immunologic: Reports no additional allergic/immunologic complaints [facility] Past Medical History Medical History Wound, open, ear, Eustachian tube Otitis media Broken nose Surgical History Surgical History History of appendectomy Social History Social History Smoking packs per day: 2 Smoking cigarettes per day: 40.0 Smoking status: Current every day smoker Tobacco type: cigarettes Substance use: never Exam Const: General: healthy appearing Nutritional Appearance: well nourished Orientation/consciousness: patient oriented x3 HENMT: Head: normal to inspection Ears: external ears normal Face/Nose/Sinus: Normal external nose present Face and sinus: normal facial exam Mouth: Yes Normal oral and palatal mucosa present Teeth and gingiva: dentition normal Throat: posterior oropharynx normal Eyes: Conjunctivae: conjunctival abnormality ( conjunctivitis) right Pupils: Equal, round and reactive pupils present EOM: EOMs intact bilaterally Other: using the fluorescein stain could see a scratch underneath the pupil and a scratch to the top right corner of the pupil was well. 1 small foreign object noted I was able to be extracted. Neck: Neck: normal visual inspection Chest: Chest palpation & inspection: normal inspection of the chest Resp: Effort & Inspection: normal respiratory effort Auscultation: clear to auscultation bilaterally Cardio: Rate: regular rate Rhythm: regular rhythm Heart sounds: Murmur heart sound present GI: GI Palp: Yes Soft to palpation Back/Spine/Pelvis: Back: no CVA tenderness Skin: General skin exam: normal color Rashes: no rashes Wounds: no wounds Neuro: General: patient oriented x3 Cranial nerves: Yes Nystagmus not present Speech: normal speech Gait exam (Neuro): Normal gait present Extrem: General: normal to inspection Psych: Mental Status: mental status grossly normal Affect: normal affect Attitude: cooperative Course Vital Signs Vital signs: Vital Signs Temperature 97.0 F L 03/31/25 07:46 Pulse Rate 71 03/31/25 07:46 Respiratory Rate 14 03/31/25 07:46 Blood Pressure 127/95 H 03/31/25 07:46 Pulse Oximetry 98 03/31/25 07:46 Oxygen Delivery Room Air 03/31/25 07:46 Temperature 97.0 F L 03/31/25 07:46 Pulse Rate 71 03/31/25 07:46 Respiratory Rate 14 03/31/25 07:46 Blood Pressure 127/95 H 03/31/25 07:46 Pulse Oximetry 98 03/31/25 07:46 Oxygen Delivery Room Air 03/31/25 07:46 MDM - Eye Problem MDM Narrative Medical decision making narrative: Patient possibly could have some conjunctivitis that is forming has a contract he was very erythematous, however he does have pain with that in some colitis normally is not as painful. Will check with fluorescein stain under the black point. Did this and did see a couple areas of scratches on just on the sclera no corneal injury and is small foreign body was able to get out with a Q-tip. Will still write for Polytrim eye drops for the next 7 days. Differential Diagnosis Differential diagnosis: Likely conjunctivitis Medical Records Attestation: I reviewed the patient's medical records. Lab Data Attestation: I reviewed the patient's lab results. ABG Data Attestation: I personally reviewed and interpreted this ABG as follows: Imaging Data Attestation: I personally reviewed and interpreted this imaging study as follows: Discharge Plan Discharge Clinical Impression: Conjunctivitis, Acute right eye pain Patient Disposition: Home Condition: Stable Instructions: Antibiotic Form, Conjunctivitis (ED) Patient Language: Namibian Prescriptions: New polymyxin B sulf-trimethoprim 10,000 unit- 1 mg/mL drops 1 drp EACH EYE Q3H 7 Days Qty: 10 0RF Rx Instructions: while awake; do not exceed 6 doses in 24 hours No Action cyclobenzaprine 10 mg tablet 10 mg PO Q8H PRN (Reason: MUSCLE RELAXOR) duloxetine 60 mg capsule,delayed release(DR/EC) 60 mg PO DAILY pregabalin 200 mg capsule 200 mg PO Q8H oxycodone 10 mg tablet 10 mg PO Q6H PRN (Reason: pain) Eliquis 5 mg tablet 5 mg PO Q12H alprazolam 2 mg tablet 2 mg PO DAILY Follow-up/Referrals: Desiree,YENNY Crowell [Primary Care Provider] - Time of Disposition: 08:19
--- OUTSIDE RECORDS SUMMARY | 2025-03-31 08:10 | XMS_ITS | Clinical Summary ---
Author Organization [facility] Address [address] [place] [address] Phone Care Team Providers Care Color Room Attendant Name Role Phone Unavailable Primary Care Provider Unavailabl e Allergies No known active allergies Social History Tobacco Use Types Packs/Day Years Used Date Smoking Tobacco: Never Assessed Sex and Gender Information Value Date Recorded Sex Assigned at Not on file Legal Sex Male 3:49 AM DIRECTOR OF FINANCIAL REPORTING Gender Identity Not on file Sexual Orientation Not on file Plan of Treatment Not on file
--- OUTSIDE RECORDS SUMMARY | 2025-03-31 08:10 | XMS_ITS | Encounter Summary ---
Author Organization [facility] Address [address] [place] [address] Care Team Providers Care Payroll Accounting Manager Name Role Phone Socrates Ramírez Primary Care Provider [phone] Encounter Details Date Type Department Care Team (Late st Contact Info) Description 04/19/2019 Abstract SFL CONVERSION [address] [place] [address] , Generic Conversion, Social History Tobacco Use Types Packs/Day Years Used Date Smoking Tobacco: Never Assessed Sex and Gender Information Value Date Recorded Sex Assigned at Male 11/26/2024 1:28 PM ETHNOARCHAEOLOGY PROFESSOR Legal Sex Male 5:52 PM ETHNOARCHAEOLOGY PROFESSOR Gender Identity Not on file Sexual Orientation Straight 12/31/2024 9: 23 AM ETHNOARCHAEOLOGY PROFESSOR documented as of this encounter Plan of Treatment Not on file documented as of this encounter Visit Diagnoses Not on filedocumented in this encounter Care Teams Payroll Accounting Manager Relationship Specialty Start Date End Date Socrates Ramírez PA [address] [place] [phone] PCP - General PHYSICIAN MAJOR ASSEMBLY LINEMAN 11/26/24 documented as of this encounter
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
[2025-03-31 08:26] VITALS: BP 127/95; PULSE 71; RESP 14; TEMP 36.1; O2SAT 98
== END 2025-03-31 08:26 | disposition home or self-care (01) ==
PROVIDERS: Emergency Provider Family Medicine; PCP Physician Assistant
DX: H10.31 Unspecified acute conjunctivitis, right eye (principal); F17.210 Nicotine dependence, cigarettes, uncomplicated
CPT/HCPCS: 99283; A9270

== ENCOUNTER 2025-07-10 12:20 | Outpatient (CLI) | payer OTHER, SELFPAY ==
--- NOTE | ~2025-07-10 | US_ITS ---
EXAMINATION:US venous doppler LE RT INDICATION:Deep vein thrombosis right peroneal vein TECHNIQUE: Multiple grayscale, color flow and Doppler images of the right lower extremity deep venous systems were obtained and reviewed. COMPARISON:Ultrasound dated 03/23/2025 FINDINGS: The common femoral, superficial femoral and popliteal veins demonstrate normal respiratory variation, augmentation and compressibility. Color flow is also seen within the posterior tibial, greater saphenous and profunda veins. There is chronic thrombosis of one of 2 paired peroneal veins. 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 Reviewed, dictated and finalized at location O.
--- OUTSIDE RECORDS SUMMARY | 2025-07-10 12:24 | XMS_ITS | Clinical Summary ---
Author Organization [facility] Address [address] [place] [address] Phone Care Team Providers Care Turpentiner Name Role Phone Unavailable Primary Care Provider Unavailabl e Allergies No known active allergies Social History Tobacco Use Types Packs/Day Years Used Date Smoking Tobacco: Never Assessed Sex and Gender Information Value Date Recorded Sex Assigned at Not on file Legal Sex Male 3:49 AM REGISTRATION MANAGER Gender Identity Not on file Sexual Orientation Not on file Plan of Treatment Not on file
== END 2025-07-10 12:21 | disposition home or self-care (01) ==
PROVIDERS: PCP Physician Assistant; Visit Provider Physician Assistant
DX: I82.551 Chronic embolism and thrombosis of right peroneal vein (principal); I82.401 Acute embolism and thrombosis of unspecified deep veins of right lower extremity
CPT/HCPCS: 93971

== ENCOUNTER 2025-07-27 10:41 | Outpatient (CLI) | payer OTHER, SELFPAY ==
--- OUTSIDE RECORDS SUMMARY | 2025-07-27 12:13 | XMS_ITS | Clinical Summary ---
Author Organization [facility] Address [address] [place] [address] Phone Care Team Providers Care Lock And Dam Repairer Name Role Phone Unavailable Primary Care Provider Unavailabl e Allergies No known active allergies Social History Tobacco Use Types Packs/Day Years Used Date Smoking Tobacco: Never Assessed Sex and Gender Information Value Date Recorded Sex Assigned at Not on file Legal Sex Male 3:49 AM BATTER OUT Gender Identity Not on file Sexual Orientation Not on file Plan of Treatment Not on file
== END 2025-07-27 10:42 | disposition home or self-care (01) ==
LOC: CHSAUDIO 10:43
PROVIDERS: PCP Physician Assistant; Visit Provider Otolaryngology
DX: H93.13 Tinnitus, bilateral (principal); H90.A22 Sensorineural hearing loss, unilateral, left ear, with restricted hearing on the contralateral side; H90.A31 Mixed conductive and sensorineural hearing loss, unilateral, right ear with restricted hearing on the contralateral side
CPT/HCPCS: 92557; 92567

== ENCOUNTER 2025-08-16 02:36 | Emergency (ER) | payer OTHER, SELFPAY ==
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
--- OUTSIDE RECORDS SUMMARY | 2025-08-16 02:39 | XMS_ITS | Clinical Summary ---
Author Organization [facility] Address [address] [place] [address] Phone Care Team Providers Care Collar Baster Jumpbasting Name Role Phone Unavailable Primary Care Provider Unavailabl e Allergies No known active allergies Social History Tobacco Use Types Packs/Day Years Used Date Smoking Tobacco: Never Assessed Sex and Gender Information Value Date Recorded Sex Assigned at Not on file Legal Sex Male 3:49 AM DIGITAL SALES EXECUTIVE Gender Identity Not on file Sexual Orientation Not on file Plan of Treatment Not on file
--- OUTSIDE RECORDS SUMMARY | 2025-08-16 02:39 | XMS_ITS | Encounter Summary ---
Author Organization [facility] Address [address] [place] [address] Care Team Providers Care Director Community Health Nursing Name Role Phone Socrates Ramírez Primary Care Provider Encounter Details Date Type Department Care Team (Late st Contact Info) Description 04/19/2019 Abstract SFL CONVERSION [address] [place] [address] , Generic Conversion, Social History Tobacco Use Types Packs/Day Years Used Date Smoking Tobacco: Never Assessed Sex and Gender Information Value Date Recorded Sex Assigned at Male 11/26/2024 1:28 PM SERVICES REP Legal Sex Male 5:52 PM SERVICES REP Gender Identity Not on file Sexual Orientation Straight 12/31/2024 9: 23 AM SERVICES REP documented as of this encounter Plan of Treatment Not on file documented as of this encounter Visit Diagnoses Not on filedocumented in this encounter Care Teams Director Community Health Nursing Relationship Specialty Start Date End Date Socrates Ramírez PA [address] [place] [phone] PCP - General PHYSICIAN APPLICATIONS SYSTEMS ANALYST 11/26/24 documented as of this encounter
[2025-08-16 02:42] VITALS: BP 141/81; PULSE 103; RESP 20; TEMP 36.2; O2SAT 98
--- NOTE | 2025-08-16 02:45 | ED.EXTPRO ---
HPI - Extremity Problem General Chief complaint: Extremity Problem,Nontraumatic Stated complaint: EXTREMITY PROBLEM Time Seen by Provider: 08/16/25 02:44 Source: patient Mode of arrival: ambulatory Limitations: no limitations History of Present Illness HPI Narrative: 34 year old male presents to the Emergency Department complaining of phantom limb pain to right forearm amputation. Patient taking multiple meds without relief. MD Complaint: extremity pain Pain Consistency: constant Location: right and upper extremity Relieving factors: nothing Related Data Home Medications ?Medication ?Instructions ?Recorded ?Confirmed ?Last Taken ?Type apixaban 5 mg tablet (Eliquis) 5 mg PO Q12H 12/21/24 07/23/25 Unknown History duloxetine 60 mg capsule,delayed 60 mg PO DAILY 12/21/24 07/23/25 Unknown History release oxycodone 10 mg tablet 10 mg PO Q6H PRN pain 12/21/24 07/23/25 Unknown History pregabalin 200 mg capsule 200 mg PO Q8H PAIN 12/21/24 07/23/25 Unknown History alprazolam 2 mg tablet 2 mg PO DAILY 01/07/25 07/23/25 Unknown History prazosin 1 mg capsule mg PO 07/23/25 07/23/25 Unknown History Allergies Allergy/AdvReac Type Severity Reaction Status Date / Time No Known Allergies Allergy Verified 08/16/25 02:43 Review of Systems Review of Systems: All systems reviewed & are unremarkable except as noted in HPI and below Constitutional: Constitutional: Reports as per HPI, Denies chills and Denies fever(s) Eyes: Eyes: Reports as per HPI ENT: Reports system reviewed and no additional complaints, except as documented Cardiovascular: Cardiovascular: Reports as per HPI and Denies chest pain Respiratory: Respiratory: Reports as per HPI and Denies dyspnea Gastrointestinal: Gastrointestinal: Reports as per HPI, Denies abdominal pain, Denies nausea and Denies vomiting Genitourinary: Genitourinary: Reports no additional male genitourinary complaints Musculoskeletal: Musculoskeletal: Reports no additional musculoskeletal complaints Comments: phantom limb pain right arm Integumentary/Breasts: Skin/Breast: Reports system reviewed and no additional complaints, except as docu Neurologic: Reports system reviewed and no additional complaints, except as documented PMFSH Past Medical History Medical History Wound, open, ear, Eustachian tube Otitis media Broken nose Surgical History Surgical History History of appendectomy Social History Social History Smoking packs per day: 2 Smoking cigarettes per day: 40.0 Smoking status: Current every day smoker Tobacco type: cigarettes Substance use: never Exam Const: General: healthy appearing and alert Nutritional Appearance: well nourished Orientation/consciousness: patient oriented x3 Limitations: no limitations HENMT: Head: normal to inspection Ears: external ears normal Face/Nose/Sinus: Normal external nose present Face and sinus: normal facial exam Eyes: Pupils: Equal, round and reactive pupils present EOM: EOMs intact bilaterally Neck: Neck: normal visual inspection Chest: Chest palpation & inspection: normal inspection of the chest Resp: Effort & Inspection: normal respiratory effort Auscultation: clear to auscultation bilaterally Cardio: Rate: regular rate Rhythm: regular rhythm GI: Inspection: non-distended GI Palp: Yes Soft to palpation and No Tenderness to palpation present (GI) Skin: General skin exam: normal color Rashes: no rashes Neuro: General: patient oriented x3 Cranial nerves: Yes Nystagmus not present Speech: normal speech Gait exam (Neuro): Normal gait present Other: grossly normal Extrem: General: normal to inspection and no clubbing, cyanosis or edema Course Course Emergency Course: 34 y/o male presents to the ED c/o phantom limb pain right forearm /hand. Home meds not helping. PE: no acute findings Tx: Dilaudid 2 mg IM [feeling much better] Instructions Vital Signs Vital signs: Vital Signs Temperature 36.2 C L 08/16/25 02:42 Pulse Rate 103 H 08/16/25 02:42 Respiratory Rate 20 08/16/25 02:42 Blood Pressure 141/81 H 08/16/25 02:42 Pulse Oximetry 98 08/16/25 02:42 Oxygen Delivery Room Air 08/16/25 02:42 Temperature 36.2 C L 08/16/25 02:42 Pulse Rate 87 08/16/25 03:41 Respiratory Rate 18 08/16/25 03:41 Blood Pressure 133/62 08/16/25 03:41 Pulse Oximetry 99 08/16/25 03:41 Oxygen Delivery Room Air 08/16/25 03:41 Discharge Plan Discharge Clinical Impression: Phantom limb pain Patient Disposition: Home Condition: Stable Instructions: Arm Pain (ED) Additional Instructions: Continue home medications Follow up Primary Care Physician Patient Language: [place] Prescriptions: No Action duloxetine 60 mg capsule,delayed release(DR/EC) 60 mg PO DAILY pregabalin 200 mg capsule 200 mg PO Q8H oxycodone 10 mg tablet 10 mg PO Q6H PRN (Reason: pain) Eliquis 5 mg tablet 5 mg PO Q12H alprazolam 2 mg tablet 2 mg PO DAILY prazosin 1 mg capsule PO Follow-up/Referrals: Desiree,YENNY Crowell [Primary Care Provider] Time of Disposition: 03:29
[2025-08-16] MEDS: HYDROmorphone HCL INJ (*CRX) 2 MG/ML VIAL IM (03:17)
[2025-08-16 03:41] VITALS: BP 133/62; PULSE 87; RESP 18; O2SAT 99
== END 2025-08-16 03:41 | disposition home or self-care (01) ==
LOC: CHSED 03:31
PROVIDERS: Emergency Provider Emergency Medicine; PCP Physician Assistant
DX: G54.6 Phantom limb syndrome with pain (principal); F17.210 Nicotine dependence, cigarettes, uncomplicated
CPT/HCPCS: 96372; 99283; J1171

== ENCOUNTER 2025-08-16 14:25 | Emergency (ER) | payer OTHER, SELFPAY ==
[2025-08-16 14:25] VITALS: BP 143/78; PULSE 94; RESP 16; TEMP 36.2; O2SAT 96
--- OUTSIDE RECORDS SUMMARY | 2025-08-16 14:33 | XMS_ITS | Clinical Summary ---
Author Organization [facility] Address [address] [place] [address] Phone Care Team Providers Care Social Insurance Specialist Name Role Phone Unavailable Primary Care Provider Unavailabl e Allergies No known active allergies Social History Tobacco Use Types Packs/Day Years Used Date Smoking Tobacco: Never Assessed Sex and Gender Information Value Date Recorded Sex Assigned at Not on file Legal Sex Male 3:49 AM DENTAL SCHEDULER Gender Identity Not on file Sexual Orientation Not on file Plan of Treatment Not on file
--- OUTSIDE RECORDS SUMMARY | 2025-08-16 14:33 | XMS_ITS | Encounter Summary ---
Author Organization [facility] Address [address] [place] [id number] Care Team Providers Care Cafeteria Cashier Name Role Phone Socrates Ramírez Primary Care Provider [phone] Encounter Details Date Type Department Care Team (Late st Contact Info) Description 04/19/2019 Abstract SFL CONVERSION [address] [place] [address] , Generic Conversion, Social History Tobacco Use Types Packs/Day Years Used Date Smoking Tobacco: Never Assessed Sex and Gender Information Value Date Recorded Sex Assigned at Male 11/26/2024 1:28 PM CYLINDER GRINDER Legal Sex Male 5:52 PM CYLINDER GRINDER Gender Identity Not on file Sexual Orientation Straight 12/31/2024 9: 23 AM CYLINDER GRINDER documented as of this encounter Plan of Treatment Not on file documented as of this encounter Visit Diagnoses Not on filedocumented in this encounter Care Teams Cafeteria Cashier Relationship Specialty Start Date End Date Socrates Ramírez PA [address] [place] [phone] PCP - General PHYSICIAN ENGINEERING TECHNICAL ANALYST 11/26/24 documented as of this encounter
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
[2025-08-16] MEDS: HYDROmorphone HCL INJ (*CRX) 2 MG/ML VIAL IM (15:14)
[2025-08-16] MEDS: ONDANSETRON HCL ODT 4 MG TABLET PO (15:14)
[2025-08-16 15:30] VITALS: BP 145/89; PULSE 92; RESP 16; O2SAT 94
--- NOTE | 2025-08-16 15:38 | PC.NURSE ---
ERP aware of pt's vitals. No new orders.
== END 2025-08-16 15:46 | disposition home or self-care (01) ==
PROVIDERS: Emergency Provider Emergency Medicine; PCP Physician Assistant
DX: G90.511 Complex regional pain syndrome I of right upper limb (principal); Z79.891 Long term (current) use of opiate analgesic; F17.210 Nicotine dependence, cigarettes, uncomplicated; Z89.111 Acquired absence of right hand
CPT/HCPCS: 96372; 99283; A9270; J1171

== ENCOUNTER 2025-08-21 19:53 | Emergency (ER) | payer OTHER, SELFPAY ==
[2025-08-21 19:53] VITALS: BP 139/79; PULSE 77; RESP 18; TEMP 36.2; O2SAT 77
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
[2025-08-21] MEDS: MORPHINE SULFATE (*CRX) 4 MG/ML INJ IM (21:18)
[2025-08-21] MEDS: PROCHLORPERAZINE EDISYLATE 10 MG/2 ML VIAL IM (21:18)
[2025-08-21 21:50] VITALS: BP 135/76; PULSE 78; RESP 17; TEMP 36.4; O2SAT 98
== END 2025-08-21 21:50 | disposition home or self-care (01) ==
LOC: CHSED 20:57
PROVIDERS: Emergency Provider Internal Medicine Critical Care Medicine; PCP Physician Assistant
DX: G54.6 Phantom limb syndrome with pain (principal); F17.210 Nicotine dependence, cigarettes, uncomplicated; Z79.891 Long term (current) use of opiate analgesic
CPT/HCPCS: 96372; 99284; J0780; J2270

== ENCOUNTER 2025-09-21 07:33 | Day surgery (SDC) | payer OTHER, SELFPAY ==
[2025-09-21] VITALS (8 sets, daily range): BP systolic 118–135; BP diastolic 80–102; PULSE 64–94; RESP 14–18; TEMP 36.8–37; O2SAT 94–100
--- NOTE | 2025-09-21 07:28 | WPDHPUPDATE1 ---
History and Physical Update Update Date/Time: 09/21/25 07:28 History and Physical has been reviewed, including an updated exam of the patient. There are NO changes in the patient's condition. Risks, benefits, and alternatives have been discussed and questions answered. Patient agrees to proceed with procedure.
--- OUTSIDE RECORDS SUMMARY | 2025-09-21 07:36 | XMS_ITS | Clinical Summary ---
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
--- NOTE | 2025-09-21 08:49 | WPDANESEPPF ---
Anes - Initial Pre Proc Eval Procedure: Operation Date: 09/21/25 10:00 Proposed Procedures p Bilateral Nasal Endoscopy - Magdaleno Puente MD s Bilateral Eustachian Tube Balloon Dilation - MD yesenia Gaona Right Myringotomy with Insertion of Tube, - Magdaleno Puente MD s Right Cartilage Button vs. Fat Graft vs. Fascial Graft Tympanoplasty - Magdaleno Puente MD Date/Time: 09/21/25 08:49 Surgeon: Magdaleno Puente MD Pre Op Diagnosis: Unspecified Hearing Loss Bilateral Ear Patient Data Age: 35 Gender: M Height: 1.78 m Weight: 96.162 kg Allergies Allergy/AdvReac Type Severity Reaction Status Date / Time No Known Allergies Allergy Verified 09/21/25 08:00 Home Medications ?Medication ?Instructions ?Recorded ?Confirmed ?Type apixaban 5 mg tablet (Eliquis) 5 mg PO Q12H 12/21/24 09/21/25 History duloxetine 60 mg capsule,delayed 60 mg PO DAILY 12/21/24 09/21/25 History release alprazolam 2 mg tablet 2 mg PO DAILY 01/07/25 09/21/25 History prazosin 1 mg capsule 1 mg PO HS 07/23/25 09/21/25 History oxycodone-acetaminophen 7.5 mg-325 1 tablet PO Q6-8H PRN pain 08/16/25 09/21/25 History mg tablet pregabalin 200 mg capsule 200 mg PO TID 09/08/25 09/21/25 History Patient hx anesthesia problems: none Family hx anesthesia problems: none Results Review: All pre-operative results and documents have been reviewed as part of the pre-operative evaluation. [facility] Past Medical History Medical History Wound, open, ear, Eustachian tube Otitis media Broken nose Surgical History Surgical History History of appendectomy Social History Social History Smoking packs per day: 1.5 Smoking cigarettes per day: 30.0 Years smoked: 20 Smoking pack-years: 30.00 Smoking status: Current every day smoker Tobacco type: cigarettes Alcohol intake: never Substance use: current Substance use type: marijuana Last use: daily Living arrangements: with family Spiritual care concerns: No Anes - Eval Final PreProcedure Day of Procedure 09/21/25 08:49 Heart: regular rate and rhythm Lungs: clear to auscultation Airway: Mallampati scale class II Neurological: alert and oriented Last oral intake: >/= 8 hours ASA classification: II Anesthetic plan: proceed Anesthesia type and monitoring: general Results Review: All pre-operative results and documents have been reviewed as part of the pre-operative evaluation. Informed Consent: The patient's anesthetic plan and its attendant risks and benefits were discussed with the patient/family/POA. Questions were solicited and answers provided to the satisfaction of the patient/family/POA.
[2025-09-21] MEDS: LACTATED RINGERS 1,000 ML 30 ML IV CONT ×2 (08:50→14:08)
[2025-09-21] MEDS: CIPROFLOXACIN HCL 0.3% OP SOLN 2.5 ML BTL 1 DROP (11:35)
[2025-09-21] MEDS: GELATIN SPONGE SZ 100 1 EACH (11:35)
[2025-09-21] MEDS: OXYMETAZOLINE HCL 0.05% NAS 15 ML BTL (*BKC) 1 SPRAY NASAL (12:30)
--- NOTE | 2025-09-21 13:16 | SUR.OPER ---
1310- dr. ridley spoke with allan via phone call and obtained consent to preform bilateral adenoidectomy
--- NOTE | 2025-09-21 13:51 | WPDANESPN ---
Anes - Prog Note Post-Op Date/Time: 09/21/25 13:51 Cardiovascular status: normal Respiratory status: normal Airway patency: baseline Mental status: baseline Post-Op hydration status: normal Vital Signs: Last Vital Signs Temp 37.0 C 09/21/25 08:40 Pulse 81 09/21/25 08:40 Resp 15 09/21/25 08:40 BP 141/90 09/21/25 08:40 Pulse Ox 100 09/21/25 08:40 O2 Del Method Room Air 09/21/25 08:40 Pain Score (VAS): 0 I/O: Intake & Output 09/20/25 09/21/25 09/21/25 23:59 07:59 15:59 Intake Total 0 Balance 0 Patient Feedback: Patient satisfied with anesthetic care.
[2025-09-21] MEDS: fentaNYL CITRATE INJ (*CRX) 100 MCG/2 ML VIAL 25 MCG IV PUSH ×8 (14:00→14:42)
--- NOTE | 2025-09-21 14:26 | SUR.PHASEI ---
1400; PT AWAKE AND ALERT. GRIMACING AND C/O PAIN TO THROAT AND NOSE AND RT EAR OF 8-9/10 CONTINUOUSLY. PT ASKING HOW MANY OXYCODONE AND WHAT DOSAGE DR JUARES SENT TO HIS PHARMACY. PT STATES THATS NOT ENOUGH, I WILL GO THRU 10 OXY'S OVER NIGHT 1402; NTEO SAL NOTIFIED OF PT'S CONTINUOUS C/O PAIN. GIVING FENTANY IV PRN.
--- NOTE | 2025-09-21 14:36 | SUR.PHASEI ---
PT AWAKE AND ALERT. EATING ICE CHIPS. PT STILL C/O PAIN AT 9/10. ASKING FOR MORE NARCOTICS. GRIMACING. ASKING NURSE TO CALL DR JUARES FOR MORE OXYCODONE TABLETS TO BE CALLED IN.
[2025-09-21] MEDS: oxyCODONE HCL (*CRX) 5 MG TAB IR PO (14:59)
--- NOTE | 2025-09-21 15:36 | SUR.PHASEII ---
1453; CALLED DR JUARES. MAY RESUME ELIQUIS TODAY. WRITTEN ON DISCHARGE PAPERWORK AND SPOUSE VERBALIZED UNDERSTANDING. NOTIFIED DR JUARES THAT PT STATES HIS AMOUNT OF OXYCODONE IS NOT ENOUGH. DR JUARES SENT MORE OXY VIA INTERNET TO PT'S PHARMACY. PT MAY TAKE [address] JUARES. PT AND SPOUSE VERBALIZED UNDERSTANDING. DR JUARES ALSO NOTIFIED OF PT'S CONTINUED C/O PAIN AT 9/10 TO THROAT AND RT EAR AND NOSE. 1415; PT ASKING TO GO HOME. GETTING DRESSED. PT AWAKE AND ALERT.
--- NOTE | 2025-09-21 17:36 | W.PM.PROC2 ---
Procedure Note - Detailed Date of Procedure 09/21/25 Pre-op Diagnosis Unspecified Hearing Loss Bilateral Ear , adenoid hypertrophy, eustachian tube dysfunction, turbinate hypertrophy, right-sided tympanic membrane perforation Post-op Diagnosis Same Procedure Performed 1. Right-sided fascial graft cartilage button tympanoplasty 2. Nasal endoscopy 3. Bilateral inferior turbinate outfracture 4. Transnasal adenoidectomy 5. Bilateral eustachian tube balloon dilation Surgeon Magdaleno Puente MD Anesthesia General Indications see above Findings right-sided perforation which was not be amenable to cartilage button. Unable to elevate the tympanic annulus to place the fascial graft. Hypertrophied inferior turbinates. Hypertrophied adenoids. Successful balloon bilateral eustachian tube. Description of Procedure patient identified consent verified in the preoperative holding area. Patient brought to the operating. Time-out performed. General anesthesia induced endotracheal tube secured airway. Patient prepped draped position procedure confirmed. Right-sided viewed tube perforations the anterior was not abutting the umbo or annulus. Right-sided postauricular region viewed. 0.5 cc 1% lidocaine with 1 100 parts epinephrine injected in the posterior to the fifi bowl. Fifteen blade utilized to cut the skin. Six sorry 5 mm punch utilized to pull cartilage graft as the perforation was measured at about 4 mm. Cartilage button successfully harvested and carved underneath the microscope. Attention turned to the perforation which was rimmed. It was at this point that I realized the strut of tympanic membrane between the 2 perforations was not amenable to cartilage but could not stand the cartilage button. Normal was at healthy. The decision was then made to perform a fascial graft tympanoplasty. Prior to raising the fascial graft or harvesting the graft I decided to raise the tympano meatal flap. The ear canal was injected. And a round blade suction round blade was utilized to perform the incisions. The tympanomeatal flap was successfully elevated to the annulus. At this time I struggle to raise the annulus it appeared to be scarred in. At this point I decided to back up into not perform the tympanoplasty given that I could not elevate the annular ligament. Gelfoam was placed so the tympanomeatal flap was placed back in its paimiut position Gelfoam was placed soaked in Ciprodex. Ciprofloxacin. Attention the postauricular incision was closed with 3 interrupted 4-0 chromic sutures. No bleeding. Attention was then turned to the nasal passages. Bilateral nasal endoscopy was performed.Afrin-soaked pledgets were placed bilaterally. The turbinates were then outfractured the [place] elevator. At this point the adenoids were encountered they were 3+ obstructing the joceline. This was new as I previously performed endoscopy in they were not obstructing. The adenoids reduced with Bovie suction electrocautery setting of 30 in 35. Was able to shrink them down significantly with no bleeding. The bilateral eustachian tubes were then balloon for 2 minutes each. No complications. No bleeding the nasal passage. The nasal passages were then copiously irrigated with sterile normal saline. Suctioned out. Patient tolerated the procedure very well no complications other than I was not able to perform the right-sided tympanoplasty. Total blood loss about 5 cc. Care the patient back to Anesthesiology. A patient taken to PACU in good condition with no immediate complications. Estimated Blood Loss 5 Packing Yes (Gelfoam) Pathology None sent Complications No immediate complications Condition Stable Disposition PACU [facility] Billing Surgery - Charge Forward: Surgery Billing
== END 2025-09-21 15:30 | disposition home or self-care (01) ==
LOC: ASC 07:34
PROVIDERS: PCP Physician Assistant; Visit Provider Otolaryngology
PROC: (CPT 69610; principal; 2025-09-21 10:00)
PROC: (CPT 69610; 2025-09-21 10:00)
PROC: (CPT 69610; 2025-09-21 10:00)
DX: H91.93 Unspecified hearing loss, bilateral (principal); J35.2 Hypertrophy of adenoids; H69.90 Unspecified Eustachian tube disorder, unspecified ear; J34.3 Hypertrophy of nasal turbinates; H72.91 Unspecified perforation of tympanic membrane, right ear
CPT/HCPCS: 69610; 21235; 42999; 69706; 30930; J7342